=== PATIENT | male | born 1935 | race Caucasian/White ===

== ENCOUNTER 2024-01-08 04:51 | Inpatient (IN) | payer OTHER, SELFPAY ==
[2024-01-08] VITALS (20 sets, daily range): BP systolic 93–143; BP diastolic 50–90; PULSE 94; BMI 26.6; BMI 26.9
[2024-01-08] MEDS: SOLU-MEDROL PF 125 MG IV (01:19)
[2024-01-08 01:23] LABS: % Basophils 0.2 % (0-2); % Immature Granulocytes 0.4 % (0-0.5); % Lymphocytes 13.1 % (20.5-51.1); % Monocytes 8.5 % (1.7-9.3); % Neutrophils 77.8 % (42.2-75.2); Absolute Immature Granulocytes 0.1 10^3/uL (0-0.05); Absolute Lymphocytes 1.6 10^3/uL (1.2-3.4); Absolute Neutrophils 9.4 10^3/uL (1.4-6.5); Hematocrit 38.3 % (39.0-52.0); Hemoglobin 12.9 g/dL (13.0-18.0); Mean Corp Hgb Conc. 33.7 g/dL (33.0-37.0); Mean Corpuscular Hgb 29.7 pg (27.0-31.0); Mean Corpuscular Volume 88.2 fL (80.0-94.0); Mean Platelet Volume 10.9 fL (7.4-10.4); Nucleated Red Blood Cells % 0 % (-); Platelet Count 156 10^3/uL (130-400); Red Blood Cell Count 4.34 10^6/uL (4.70-6.10); Red Cell Dist. Width 15.6 % (11.5-14.5)
[2024-01-08 01:37] LABS: ALT (SGPT) 48 U/L (0-50); AST (SGOT) 54 U/L (17-59); Albumin 4.2 g/dl (3.5-5.0); Alkaline Phosphatase 73 U/L (38-126); Blood Urea Nitrogen 26 mg/dl (9-20); Carbon Dioxide 23 mmol/L (22-30); Chloride 101 mmol/L (98-107); Estimated Creatinine Clearance 26 ml/min; Glucose 170 mg/dl (70-99); Potassium 4.9 mmol/L (3.5-5.1); Sodium 134 mmol/L (135-145); Total Bilirubin 0.6 mg/dl (0.2-1.3); Total Protein 6.7 g/dl (6.3-8.2)
[2024-01-08 01:40] LABS: PT 13.2 Sec (11.4-14.6)
[2024-01-08 01:43] LABS: COVID-19 Antigen Negative (Negative)
[2024-01-08 01:50] LABS: NT-proBNP 13700 pg/ml; Troponin I 0.326 ng/ml
--- NOTE | 2024-01-08 02:19 | ED.GENMED ---
History of Present Illness
General
Chief Complaint: Breathing Problem
Source: patient, records and ambulance crew
Exam Limitations: none
Time Seen by Provider: 01/08/24 01:06
Nursing documentation reviewed up to this point in time: agreed with
Travel History
Have you had any contact with someone who has COVID-19?: No
Do you have any symptoms of coronavirus? Fever > 100 degrees, chills, cough, shortness of breath, sore throat, loss of taste or smell, muscle aches, or headache?: Yes
Symptoms:: sob
History of Present Illness
History of Present Illness:
88-year-old male with a past medical history of hyperlipidemia, hypothyroidism, asthma, CAD who presents to the emergency department via EMS from home for evaluation of breathing difficulties. Per EMS they received a call for a lift assist after
patient was having trouble getting out of bed. On arrival he was in mild respiratory distress they noted wheezing and treated with a DuoNeb transported to the hospital. Patient says that he has been feeling unwell all day�has had cough and mucus
and congestion. Tonight having worsening shortness of breath and weakness. He denies any chest pain. He has not noticed any swelling in his legs. He denies any nausea or vomiting. No abdominal pain. Denies other complaints.
Past History
Past History
ED Past Medical History: CAD, Cancer (Prostate cancer), Hypercholesterolemia, [place], Hypothyroidism and Other (Chronic back pain)
ED Past Surgical History: Appendectomy, Cardiac (Cardiac stenting) and Orthopedic (Multiple back surgeries, nerve stimulator, knee replacements)
Social History
Tobacco: Non-smoker
Alcohol: None
Drug: None
Personal:
Living: with family
Employment: Retired
Family History
Family History: Hypertension
Review of Systems
Review of Systems
All Other Systems: ROS reviewed and negative except as documented in HPI and ROS
Constitutional: Reports fatigue; Denies fever or chills
EENT: Reports other (Nasal congestion); Denies sore throat
Respiratory: Reports cough and trouble breathing
Cardiac: Denies chest pain or palpitations
ABD/GI: Denies abdominal pain, nausea or vomiting
: Denies flank pain
Musculoskeletal: Denies edema, neck pain or back pain
Neurological: Denies headache, weakness or numbness
Phy Exam
Physical Exam
Physical Exam:
General: Awake, alert, mild respiratory distress
Head: Normocephalic, atraumatic
Eyes: Conjunctiva normal
Throat: Airway intact, dry mucous membranes
Neck: Trachea midline, supple without meningismus
Lungs: Patient arrives tachypneic, hypoxic, speaking in 2-3 word sentences with some slight increased work of breathing; he has bilateral scattered expiratory wheezing breath sounds diminished at the lung bases right more than left, frequent coughing
Heart: Tachycardia with regular rhythm, no murmurs, gallops, or rubs
Abd: Soft, non distended, nontender
Neuro: Cranial nerves grossly intact, speech fluid
Skin: no rash
Extremities: No edema in extremities, equal pulses in all extremities
Scores
Heart Failure Risk
Heart Failure Risk Score: Not Applicable
Heart Score for Chest Pain Patients
STEMI patient?: Not applicable
Withdrawal Assessment of Alcohol
Withdrawal Assessment Completed?: Not applicable
Course
Orders/Labs/Results
Orders:
Orders
01/08/24 01:05
Electrocardiogram (*1) Urgent
Reason for Study: Other
Other Reason for Exam: Respiratory Distress
Cardiac Monitoring- Treatment ONCE
EKG- Treatment ONCE
IV Insert/Care/Rem.- Treatment PRN
CR Chest Portable - 1 View Urgent
Comment:
Reason For Exam: respiratory distress
Reason Study Needs to be Portable: Patient Unstable
O2 Therapy [RESP] Urgent
Titrate/Wean O2 to maintain O2 sat greater than (%): 93
Special Instructions: TO MAINTAIN CONTINUOUS O2 SATS >/= 93%
Pulse Ox/cont/shift [RESP] Urgent
Quantity: 1
Special Instructions: continuous pulse ox
01/08/24 01:14
MethylPREDNISolone PF [Solu-Medrol Pf] 125 mg IV NOW STA
01/08/24 01:15
COVID-19 Antigen Urgent
Source: Nasal Swab
Complete Blood Count/With Diff Urgent
Comprehensive Metabolic Panel Urgent
NT-proBNP Urgent
Prothrombin Time Urgent
Troponin I Urgent
Influenza A+B Rapid Molecular Urgent
JOSE MIGUEL Source: Nasal Swab
Specimen Description:
01/08/24 02:08
Venous Blood Gas Urgent
%Oxygen/Room Air: 88
01/08/24 02:09
Acetaminophen [Tylenol] 1,000 mg PO NOW STA
01/08/24 02:16
Lactate Level [Lactic Acid] Urgent
01/08/24 02:17
Procalcitonin Urgent
PCT Algorithmm Indication: Respiratory
Piperacillin/Tazo 3.375 Gram [Zosyn] 3.375 gram in 50 ml IV NOW
Vancomycin [Vancocin] 1,500 mg 0.9% Sodium Chloride [Nss] 20 ml 0.9% Sodium Chloride 250 ml [Nss] 250 ml IV NOW
01/08/24 02:19
NSS 250mL Bolus over 1 hr 0.9% Sodium Chloride 250 ml [Nss] 250 ml IV BOLUS
01/08/24 02:30
Blood Culture Q30M
JOSE MIGUEL Source: Blood/Venous
Specimen Description:
01/08/24 03:00
Blood Culture Q30M
JOSE MIGUEL Source: Blood/Venous
Specimen Description:
Abnormal Lab Results
01/08/24
01:15
WBC 12.0 H 10^3/uL
(4.8-10.8)
RBC 4.34 L 10^6/uL
(4.70-6.10)
Hgb 12.9 L g/dL
(13.0-18.0)
Hct 38.3 L %
(39.0-52.0)
RDW 15.6 H %
(11.5-14.5)
MPV 10.9 H fL
(7.4-10.4)
Abs Immat Gran (auto) 0.1 H 10^3/uL
(0-0.05)
Absolute Neuts (auto) 9.4 H 10^3/uL
(1.4-6.5)
Absolute Monos (auto) 1.0 H 10^3/uL
(0.1-0.6)
Neutrophils % 77.8 H %
(42.2-75.2)
Lymphocytes % 13.1 L %
(20.5-51.1)
Sodium 134 L mmol/L
(135-145)
BUN 26 H mg/dl
(9-20)
Creatinine 1.5 H mg/dL
(0.7-1.3)
Glucose 170 H mg/dl
(70-99)
Troponin I 0.326 H* ng/ml
01/08/24 01:15
01/08/24 01:15
Vital Signs
Initial and Last Documented VS:
Initial Vital Signs
Pulse Resp
125 28
01/08/24 01:06 01/08/24 01:06
Last Documented Vital Signs
Temp Pulse Resp BP Pulse Ox
38.6 C H 119 22 143/71 94
01/08/24 01:27 01/08/24 01:45 01/08/24 01:45 01/08/24 01:07 01/08/24 01:45
MDM/Problems Addressed
Differential Diagnosis Includes:
Asthma, bronchitis, pneumonia, CHF, pulmonary embolism
MDM/Problems Addressed:
88-year-old male presents in mild respiratory distress�has had congestion and cough all day increasing shortness of breath tonight. Vital signs significant for tachycardia, tachypnea, fever, hypoxia. Blood pressure normal. Physical exam as above.
Patient was placed on oxygen via nasal cannula, was given a DuoNeb and IV Solu-Medrol given his wheezing. Large-bore IV placed labs sent off including CBC and CMP, VBG, troponin, BNP. Will swab for COVID and flu. Will call for stat chest x-ray
and obtain an EKG. Monitor very closely and reassess after the above.
After DuoNeb and steroids patient's tachypnea and work of breathing improved now able to speak in full sentences. Still some slight wheezing and frequent coughing. Initial labs reviewed: CBC does show leukocytosis to 12, CMP shows MARIA ESTHER with a
creatinine of 1.5 from a baseline of less than 1. Troponin and BNP elevated likely some background CHF although patient does not appear floridly volume overloaded; with MARIA ESTHER, dry mucous membranes on exam and continued tachycardia will provide some
gentle fluids. COVID and flu swabs are negative. Chest x-ray reviewed by me shows elevated right hemidiaphragm adjacent atelectasis versus pneumonia, also likely left lower lobe opacity (retrocardiac). Concern for pneumonia, sepsis�will cover
with antibiotics. Will admit for continued management. Discussed with hospitalist.
Chronic conditions affecting care:
Asthma
*Radiology
Radiology exam reviewed: preliminary read by ED provider
*Pulse Oximetry
Patient hypoxic: yes
*EKG
Interpreted by ED Provider?: Yes
Comparison EKG: changes noted (Tachycardic)
Heart Rate: 125
Rate: tachycardiac
Rhythm: sinus and sinus tachycardia
Beulah: normal axis
Interval: normal interval
QRS Pattern: right bundle branch block
Ischemia: non-specific ST changes
*Critical Care Note
Total Time (30-74mins, 75-104mins- exclusive of procedures): 32
comment:
Critical care statement: A total of 32 minutes of critical care time was provided for this patient. This includes management of unstable vital signs, evaluation of the patient at bedside, frequent reassessment, discussion with
consultants/hospitalist, and review of pertinent medical records. This time was separate from time utilized to perform any aforementioned documented procedures.
Data Reviewed
Review of Other/Old Records Reveals: Labs and Records
Source: patient, records and ambulance crew
Patient Management
Discussion with other providers: Hospitalist (Discussed with hospitalist)
Escalation/DeEscalation of care consider admission/obs:
Admission indicated
ED Attending Note
-
Portions of this chart may have been created with voice recognition software.� Occasional wrong word or��sound alike� substitutions may have occurred due to the inherent limitations of voice recognition software.
Discharge Plan
Departure
Patient Disposition: Admit
Date of Disposition: 01/08/24
Time of Disposition: 02:30
Admit to doctor: Chris
Presentation/result/management discussed w/ accepting MD/DO: Hospitalist
Discharge Problem:
Sepsis, Acute hypoxemic respiratory failure, Pneumonia
Prescriptions:
No Action
denosumab [Prolia] 60 MG/ML syringe
60 mg IV Q6M
nitroglycerin 0.4 MG tablet, sublingual
0.4 mg sublingual [id number] PRN (Reason: chest pain) Qty: 1 0RF
acetaminophen 325 MG tablet
650 mg PO Q4HPRN PRN (Reason: mild pain/MELCHOR/temp> 101F) 0RF
Rx Instructions:
Two tabs (650mg) by mouth every 4 hours as needed for mild pain or fever.
atorvastatin 80 MG tablet
80 mg PO HS Qty: 0 0RF
Rx Instructions:
One tab by mouth at bedtime daily.
albuterol sulfate 2.5 MG/3 ML solution for nebulization
2.5 mg inhalation R Q4HPRN PRN (Reason: sob/wheezing) Qty: 0 0RF
Rx Instructions:
One vial inhaled via nebulizer every 4 hours as needed for shortness of breath.
clopidogrel 75 MG tablet
75 mg PO DAILY Qty: 30 5RF
Rx Instructions:
One tab by mouth once daily.
aspirin 81 MG tablet,delayed release (DR/EC)
81 mg PO HS Qty: 0 0RF
Rx Instructions:
One tab by mouth once daily.
famotidine 20 MG tablet
20 mg PO HS Qty: 0 0RF
Rx Instructions:
One tab by mouth at bedtime daily.
levothyroxine 50 MCG tablet
50 mcg PO DAILY Qty: 0 0RF
Rx Instructions:
One tab by mouth once daily on an empty stomach.
hydrocodone-acetaminophen 1 TABLET tablet
1 tab PO Q4HPRN PRN (Reason: moderate to severe pain) Qty: 0 0RF
Patient Comments:
08/02/2020: Last filled 07/20/20, 60 tabs [facility] [address] [facility] #[id number]
Rx Instructions:
One tab by mouth every 4 hours as needed for pain.
pantoprazole 40 MG tablet,delayed release (DR/EC)
40 mg PO BID Qty: 30 0RF
Rx Instructions:
One tab by mouth twice daily with breakfast and dinner.
metoprolol succinate 25 MG tablet extended release 24 hr
25 mg PO DAILY Qty: 0 0RF
Rx Instructions:
One tab by mouth once daily.
calcium citrate-vitamin D3 1 EACH tablet
2 tab PO BID Qty: 0 0RF
Rx Instructions:
Two tabs by mouth twice daily.
mirabegron [Myrbetriq] 50 MG tablet extended release 24 hr
50 mg PO DAILY Qty: 0 0RF
Rx Instructions:
One tab by mouth once daily.
vit C,N-Yc-tgnnt-lutein-zeaxan [PreserVision AREDS-2] 1 EACH capsule
1 cap PO BID Qty: 0 0RF
Rx Instructions:
One capsule by mouth twice daily.
Referrals:
Robert Humphrey MD [Family Provider] -
Interventions
Interventions:
*Risk Screen - Suicide Last Done: 01/08/24 01:06
*General Assessment Last Done: 01/08/24 01:06
*Neglect/Abuse Screening Last Done: 01/08/24 01:06
ED- Fall Risk Assessment Last Done: 01/08/24 01:28
*ED COVID-19 Vaccine History Last Done: 01/08/24 01:06
ED- Cardiac Assessment Last Done: 01/08/24 01:28
ED- Pulmonary Assessment Last Done: 01/08/24 01:28
Discharge Date and Time
Print Language: DUTCH
[2024-01-08] MEDS: ZOSYN 50 IV (02:39)
[2024-01-08] MEDS: TYLENOL 1000 MG PO (02:39)
[2024-01-08] MEDS: NSS 250 IV (02:39)
[2024-01-08 02:40] LABS: Venous Blood Gas B.E. -1.7 mmol/L (-4 to +4); Venous Blood Gas O2 Sat % 64.3 %; Venous Blood Gas pCO2 38 mmHg (35-48); Venous Blood Gas pH 7.39 (7.32-7.43); Venous Blood Gas pO2 38 mmHg (30-50)
[2024-01-08 02:42] LABS: Venous Blood Gas O2 Therapy 88
[2024-01-08 02:54] LABS: Lactic Acid 2.3 mmol/L (0.7-2.0)
[2024-01-08 03:24] LABS: Procalcitonin 2.06 ng/ml (0.0-0.25)
[2024-01-08] MEDS: VANCOCIN 300 MG IV (03:40)
[2024-01-08] MEDS: VANCOCIN 300 ML IV (03:40)
--- NOTE | 2024-01-08 04:15 | HPS.HSE ---
Family Physician
-
Family Physician: Robert Humphrey
Chief Complaint
-
SOB, Weakness
History of Present Illness
Patient is an 88y M with PMH significant for ASCVD, HTN and prostate cancer who presents to ED complaining of SOB and weakness. Patient called EMS this evening as he was having difficulty getting up out of bed. They arrived to find patient that
appeared SOB and had reported wheezing. They transported him to the ED for further evaluation. In the ED, patient initially complained of cough and congestion for the past 24 hours or so.
At the time of my examination, patient is awake but not alert and not answering questions / following commands consistently.
He is unable to provide additional history at this time.
Medical History
Past Medical History
Past Medical History: Reports Other
Additional Past Medical History:
ASCVD
Hypertension
Prostate Cancer
Chronic Back Pain / Sciatica
Hypothyroidism
GERD
Past Surgical History: Reports Other
Additional Past Surgical History:
PTCA with Stent
5 Back Surgeries
Implanted Spinal Stimulator
Epidural Pain Pump Implantation
Cataracts
Appendectomy
Prostatectomy
Right Hip ORIF
Bilateral TKA
Social History
Tobacco: Non-smoker
Alcohol: None
Drug: None
Family History
Family History: Not pertinent
Allergies / Home Medications
Allergies reflects when Allergies were last updated in [facility].
Home Medications with original date entered in [facility]
Allergy/Medication List:
Unable to obtain.
If medication reconciliation has not been performed, why?: Medication List N/A (Patient unable to confirm.)
Review of Systems
-
History Source: Patient (Limited ROS due to lethargy.)
Respiratory: Reports Trouble Breathing
: Reports Other (leg pain / hip pain.)
Physical Exam
Vital Signs
Vital Signs
Temp Pulse Resp BP Pulse Ox
100.7 F H 110 23 124/64 94
01/08/24 03:51 01/08/24 02:45 01/08/24 02:45 01/08/24 02:00 01/08/24 02:45
Physical Exam
General: Other (88y M cool, clammy and diaphoretic. Awake but poorly responsive to questions / commands. Appears acutely ill.)
HEENT: Other (Dry MM. Neck supple. No JVD.)
Respiratory: Other (Decreased BS throughout R lung. Otherwise clear. No wheezing / rales.)
Cardiac: S1/S2 and Regular Rhythm; No Murmur
GI: Soft, Non Tender, Non Distended, Normal Bowel Sounds and Other (Subcutaneous pump in the R abdomen. No tenderness, fluctuance, redness.)
Musculoskeletal: No Clubbing, No Cyanosis and No Edema
Neuro: Awake and Nonfocal/grossly intact; No Alert or Oriented
Laboratory Results
-
01/08/24 01:15
01/08/24 01:15
Laboratory Results
PT 13.2 Sec (11.4-14.6) 01/08/24 01:15
INR 1.00 01/08/24 01:15
Lactic Acid 2.3 mmol/L (0.7-2.0) H 01/08/24 02:32
Total Bilirubin 0.6 mg/dl (0.2-1.3) 01/08/24 01:15
AST 54 U/L (17-59) 01/08/24 01:15
ALT 48 U/L (0-50) 01/08/24 01:15
Alkaline Phosphatase 73 U/L (38-126) 01/08/24 01:15
Troponin I 0.326 ng/ml H* 01/08/24 01:15
Impression/Plan
-
A/P: Patient is an 88y M with PMH significant for ASVCD, HTN and chronic pain who presents to ED for evaluation of weakness, cough and SOB.
Pneumonia
Acute Hypoxemic Respiratory Insufficiency secondary to the above
Acute TME secondary to the above
Sepsis secondary to the above
- Admit for further evaluation and treatment.
- Patient presents with fever, leukocytosis, tachycardia and CXR / clinical history suspicious for pneumonia.
- Evidence of life threatening organ dysfunction in the form of acute hypoxemia, MARIA ESTHER, elevated troponin and TME.
- IV abx empirically with Vanco / Zosyn - adjust as able based on culture data / clinical course.
- COVID / influenza negative in the ED.
- Supportive care including IVFs, antipyretics, nebs, O2, etc.
- Follow for clinical improvement.
- Follow for improvement in mental status, hypoxemia, etc.
MARIA ESTHER
- SCr = 1.5 compared to baseline of 0.8.
- Patient clinically appears hypovolemic and suspect primarily prerenal etiology.
- IVFs as noted above
- Follow for changes in labs / lytes.
Abnormal Troponin
- Initial troponin = 0.327.
- Patient with dyspnea but no chest pain.
- Fever, leukocytosis, elevated procal all support infectious etiology.
- ? ischemia secondary to acute illness / sepsis.
- Given history of CAD, stent, etc - will continue to trend troponin to peak and ask Cardiology to evaluate.
- Monitor for any chest pain, worsening dyspnea or other new symptoms.
Benign Hypertension
- Presently with lower BPs in the ED due to sepsis.
- Hold BP medications acutely.
- IVFs +/- pressor support to maintain adequate perfusion.
Chronic Back Pain
- Patient with implanted spinal stimulator as well as epidural pain pump.
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
- Device site(s) appear intact / stable.
Hypothyroidism
- Continue T4 supplementation.
- Update TFTs.
DVT Prophylaxis: Subcut heparin
Code Status: Full
[2024-01-08] MEDS: LR 1000 IV ×2 (05:24→16:56)
[2024-01-08 05:45] LABS: Hemoglobin 11.9 g/dL (13.0-18.0); Mean Corp Hgb Conc. 32.2 g/dL (33.0-37.0); Mean Corpuscular Hgb 29.1 pg (27.0-31.0); Mean Corpuscular Volume 90.5 fL (80.0-94.0); Mean Platelet Volume 10.8 fL (7.4-10.4); Platelet Count 120 10^3/uL (130-400); Red Blood Cell Count 4.09 10^6/uL (4.70-6.10); Red Cell Dist. Width 15.6 % (11.5-14.5); White Blood Cell Count 13.6 10^3/uL (4.8-10.8)
[2024-01-08 06:10] LABS: Troponin I 0.656 ng/ml
[2024-01-08 06:24] LABS: ALT (SGPT) 45 U/L (0-50); AST (SGOT) 61 U/L (17-59); Albumin 3.7 g/dl (3.5-5.0); Alkaline Phosphatase 66 U/L (38-126); Blood Urea Nitrogen 31 mg/dl (9-20); Calcium 8.7 mg/dl (8.4-10.2); Carbon Dioxide 21 mmol/L (22-30); Chloride 99 mmol/L (98-107); Direct Bilirubin 0.3 mg/dl (0.0-0.4); Estimated Creatinine Clearance 23 ml/min; Glucose 172 mg/dl (70-99); Potassium 4.5 mmol/L (3.5-5.1); Sodium 134 mmol/L (135-145); Total Bilirubin 0.6 mg/dl (0.2-1.3)
[2024-01-08 06:52] LABS: TSH Reflex To Free T4 1.56 uIU/ml (0.47-4.68)
[2024-01-08 07:08] LABS: Lactic Acid 1.5 mmol/L (0.7-2.0)
--- NOTE | 2024-01-08 08:14 | W.PN.HOSP.TC ---
Today's Communication/Plan
-
Follow troponin
Echo
Add hydrocortisone
IV fluids
Bladder scan
Sputum cultures
Antibiotics adjusted
Assessment / Plan
Assessment / Plan
88-year-old male presented with shortness of breath and weakness
generally weak
Coughing
CVS: S1-S2 normal, systolic murmur at apex
Chest: rales, coarse BS bilaterally
Abdomen: Soft, NT / Bowel sounds present
Extremities: No edema, normal pulses
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
Distal 5/5
# Acute hypoxic respiratory insufficiency
Secondary to pneumonia
TME secondary to pneumonia
Sepsis secondary to pneumonia
Started on vancomycin and Zosyn changed To vancomycin and cefepime and Doxy
speech evaluation
Sputum Cx
COVID influenza negative
Oxygen support, supportive care
Mucolytic's
Wean oxygen as tolerated
Acapella
# Mild hypotension-likely related to withdrawal insufficiency because of chronic steroids
Use hydrocortisone and hold off on prednisone
# Acute kidney injury-creatinine 1.5 on admission baseline 0.8
Likely hypovolemic secondary to infection
IV fluids
Check bladder scan
# Elevated troponin
History of CAD, stenting of RCA 2014
H/O Mod-severe LVH
No chest pain trend troponin
Cardiology to evaluate
Continue aspirin, Plavix, statin
Hold metoprolol and Imdur because of blood pressure being on the low side
Echo 08/13/2023-normal LV size and function. Moderate concentric LVH. Ejection fraction 60 to 65%. Stage II diastolic dysfunction. Mild to moderate MR. Aortic sclerosis. Mild TR. Pulmonary artery pressure 51 mmHg
#Prolonged QTC- Avoid meds which can prolong
Check Mag
#Chronic RBBB
# Mild thrombocytopenia-follow
#Hypertension
Blood pressure on the low side therefore hold
Normally takes metoprolol as outpatient
# Hyperlipidemia-continue statin
# Chronic back pain patient has a spinal stimulator and epidural analgesic pump
Arthritis/DJD/osteoporosis
Chronic opiate dependence for pain control
Spinal stimulator was adjusted 3 weeks ago. Analgesic pump was refilled 2 months ago
On chronic prednisone for arthritis pain he has been on that since September
In November it was increased to 15 mg from 10 mg
# Hypothyroidism-continue Synthroid
# History of peptic ulcer disease-On PPI, Pepcid
# H/O Prostate CA, prostatectomy
# Allergic Asthma-PRN Nebs as OP
# Chronic ambulatory dysfunction
Patient ambulates with a cane. Refuses to use a walker per .
# DVT prophylaxis on subcutaneous heparin
# Full code-CODE STATUS discussed he wants to be full code
Discussed with patient's at bedside
Discussed with patient's son at bedside
Time spent 51 min
Anticipated Discharge: > 48 hours
Subjective/Interval History
-
Date of Service: January 08, 2024
Objective Data
-
Labs:
Laboratory Results
01/08/24 01/08/24
01:15 05:23
WBC 12.0 H 13.6 H
Hgb 12.9 L 11.9 L
Hct 38.3 L 37.0 L
Plt Count 156 120 L D
PT 13.2
INR 1.00
Sodium 134 L 134 L
Potassium 4.9 4.5
Chloride 101 99
Carbon Dioxide 23 21 L
BUN 26 H 31 H
Creatinine 1.5 H 1.7 H
Glucose 170 H 172 H
Calcium 9.0 8.7
Total Bilirubin 0.6 0.6
AST 54 61 H
ALT 48 45
Alkaline Phosphatase 73 66
Vital Signs:
Vital Signs
Temp Pulse Resp BP Pulse Ox
98.1 F 79 18 93/74 99
01/08/24 08:00 01/08/24 08:00 01/08/24 08:00 01/08/24 08:00 01/08/24 08:00
[2024-01-08] MEDS: PLAVIX 75 MG PO (08:15)
[2024-01-08] MEDS: HEPARIN 5000 UNITS SC ×2 (08:16→19:48)
[2024-01-08] MEDS: SYNTHROID 50 MCG PO (08:16)
[2024-01-08] MEDS: NSS (PRESERVATIVE FREE) 10 ML IV (08:16)
[2024-01-08] MEDS: PROTONIX IV 40 MG IV (08:16)
[2024-01-08] MEDS: MUCINEX 600 MG PO ×2 (09:22→19:48)
[2024-01-08] MEDS: DELTASONE 15 MG PO (09:23)
[2024-01-08] MEDS: STERILE WATER FOR INJECTION 10 ML IV ×2 (09:24→17:02)
[2024-01-08] MEDS: MAXIPIME 1000 MG IV ×2 (09:24→17:01)
--- NOTE | 2024-01-08 09:27 | PHA.VAN.IN ---
Assessment
- Assessment
Renal Function: Unknown baseline (likely elevated from baseline but no recent data - SCR 1.7 vs ~0.8 in 2020)
Concomitant Antimicrobials: cefepime, doxycycline
Plan
- Plan
Initial / Loading Dose: 1500mg - 01/07 03:40
Maintenance Regimen: dosing by level
Monitoring: random 01/08 0600
MRSA Screen: Ordered per protocol
Pharmacokinetics Vancomycin I
- -
Patient Age: 88
Patient Sex: Male
Vancomycin Day #: 1
Indication: Pulmonary/Respiratory
Requesting Provider: Dr. Perez
Pertinent Antimicrobial Allergies:
NKDA
Height / Weight:
Height 5 ft 2 in
Actual Weight 66 kg
- Vital Signs / Lab Results
Temp Pulse Resp BP Pulse Ox
98.1 F 79 18 93/74 99
01/08/24 08:00 01/08/24 08:00 01/08/24 08:00 01/08/24 08:00 01/08/24 08:00
Lab Results - Hematology
01/08/24 01/08/24
01:15 05:23
WBC 12.0 H 13.6 H
Lab Results - Chemistry
01/08/24 01/08/24
01:15 05:23
BUN 26 H 31 H
Creatinine 1.5 H 1.7 H
Estimated Creat Clear 26 23
Albumin 4.2 3.7
01/08/24 01/08/24
02:32 06:43
Lactic Acid 2.3 H 1.5
Microbiology Results
01/08/24 01:15 Influenza Types A & B (FE) - Final
Nasal Swab Negative for Influenza A & B, NAAT
Negative results must be combined with clinical observations
and patient history.
Nucleic Acid Amplification test (NAAT)performed on the
[employer] platform.
[2024-01-08] MEDS: VIBRAMYCIN 260 MG IV ×2 (10:07→21:32)
[2024-01-08 10:08] LABS: Urine Albumin Trace (Neg - Trace); Urine Bilirubin Negative (Negative); Urine Character Clear (Clear); Urine Color Yellow; Urine Glucose Negative (Negative); Urine Ketone 2+ (Negative); Urine Leukocyte Negative (Negative); Urine Nitrite Negative (Negative); Urine Occult Blood 3+ (Negative); Urine Specific Gravity 1.025 (<1.030); Urine Urobilinogen Negative (Neg - 1+)
--- NOTE | 2024-01-08 10:33 | CON.CAR ---
Addendum entered and electronically signed by Daneil Sams MD 01/08/24 13:14:
I saw and examined the patient.
The Wash Helper's note was reviewed and I agree with the note.
Comment:
GEN: No distress, awake,
HEENT: supple, anicteric, mmm
LUNGS: scatt rhonchi
CV: Reg, S1/S2, 1/6 syst LSB, no gallop
ABD: soft, BS+, NT/ND
EXT: No edema
NEURO: Gross non-focal
SKIN: No rash
Plan:
88-year-old male with past medical history of coronary artery disease, hypertension, hyperlipidemia, right bundle branch block and hypothyroidism presents with cough, fever, hypotension and shortness of breath. Flu and COVID testing was negative.
He has an elevated white blood cell count with an elevated procalcitonin. Cardiology asked to see him regarding abnormal troponin at 0.6. He denies any chest pains or current shortness of breath.
Clinically it sounds like he has pneumonia/bronchitis. Agree with antibiotics. Of note his proBNP is elevated at 13,000. Would avoid overhydration for him. He may need diuresis over the next 24 hours.
His EKG is sinus rhythm with a known right bundle branch block. Continue to trend troponins. I suspect this is a nonischemic myocardial injury.
He does have known coronary artery disease. I will continue conservative therapy for now. He should continue the aspirin, Plavix, and atorvastatin. Okay to hold the Imdur for now.
If clinically he is not improving with antibiotics could consider CT scan. Creatinine now up to 1.7.
Check echocardiogram to reevaluate LVEF, valves and PA pressures.
Original Note:
Consultation
Consultation Request
Date/Time Consultation Requested: 01/08/2024
Date/Time Consultation Performed: 01/08/2024
Requesting Provider: Dr. Perez
Performing Provider: Dr. Alejandra
Reason for Consultation: Elevated troponin
Medical History
-
History of Present Illness:
HPI: Geovany is an 88 year old male with PMH of CAD w/ prior RCA PCI, HTN, HLD, chronic back pain, RBBB, prostate cancer, and hypothyroidism. He presented to [facility] due to SOB, weakness, and cough. He had reportedly been feeling unwell for a few days,
but yesterday evening, he was unable to get out of bed due to weakness, and EMS was called. In ER, he was found to be hypoxic and was placed on 4L NC. He was febrile with temp of 101.5 and also was hypotensive. Labwork revealed leukocytosis with
elevated procalcitonin. Flu and Covid negative. He was admitted with sepsis and started on IVFs and IV antibiotics. Cardiology consulted due to elevated troponin which trended upwards to 0.656. He reports no chest pain or SOB at this time.
PMH:
CAD
h/o RCA PCI 07/23/2016
residual 80% stenosis of OM2 noted w/ 50% ostial LM stenosis 07/23/2016
HTN
HLD
Chronic dyspnea
Chronic back pain w/ epidural pain pump and spinal stimulator
RBBB
Prostate cancer
Hypothyroidism
Past Medical History
Past Medical History: Other (In HPI)
Past Surgical History: Appendectomy, Cardiac (RCA PCI 2015) and Other (cataract extraction, spinal stimulator, b/l TKA, carpal tunnel release)
Social History
Tobacco: Non-Smoker
Alcohol: None
Drug: None
Personal:
Living: With Family
Employment: Retired
Family History
Family History: Cancer
Allergies / Home Medications
Allergy/AdvReac Type Severity Reaction Status Date / Time
No Known Allergies Allergy Verified 01/08/24 01:06
�Medication �Instructions �Recorded �Confirmed �Type
denosumab 60 mg/mL subcutaneous 60 mg IV [id number] 07/23/16 01/08/24 History
syringe (Prolia)
nitroglycerin 0.4 mg sublingual 0.4 mg sublingual [id number] PRN 07/23/16 01/08/24 Rx
tablet chest pain #1 tab
albuterol sulfate 2.5 mg/3 mL 2.5 mg (3 mL) inhalation R Q4HPRN 08/05/20 01/08/24 Rx
(0.083 %) solution for nebulization PRN sob/wheezing ##0
aspirin 81 mg tablet,delayed 81 mg PO HS ##0 08/05/20 01/08/24 Rx
release
atorvastatin 80 mg tablet 80 mg PO HS ##0 08/05/20 01/08/24 Rx
clopidogrel 75 mg tablet 75 mg PO DAILY #30 tabs 08/05/20 01/08/24 Rx
famotidine 20 mg tablet 20 mg PO HS ##0 08/05/20 01/08/24 Rx
metoprolol succinate 25 mg 25 mg PO DAILY ##0 08/05/20 01/08/24 Rx
tablet,extended release 24 hr
mirabegron 50 mg tablet,extended 50 mg PO DAILY ##0 08/05/20 01/08/24 Rx
release 24 hr (Myrbetriq)
vit C 250 mg-vit E 90 mg-zinc 40 1 cap PO BID ##0 08/05/20 01/08/24 Rx
mg-copper 1 [id number]
capsule (PreserVision AREDS-2)
acetaminophen 325 mg tablet 650 mg PO Q8HPRN PRN mild 01/08/24 01/08/24 History
pain/MELCHOR/temp> 101F
guaifenesin 600 mg tablet, 600 mg PO HS 01/08/24 01/08/24 History
extended release 12 hr (Mucinex)
hydrocodone 5 mg-acetaminophen 325 1 tab PO BID 01/08/24 01/08/24 History
mg tablet
isosorbide mononitrate 30 mg 30 mg PO DAILY 01/08/24 01/08/24 History
tablet,extended release 24 hr
levothyroxine 50 mcg tablet 50 mcg PO DAILY@1600 01/08/24 01/08/24 History
(Synthroid)
pantoprazole 40 mg tablet,delayed 40 mg PO DAILY 01/08/24 01/08/24 History
release
prednisone 10 mg tablet 15 mg PO DAILY 01/08/24 01/08/24 History
Review of Systems
-
History Source: Patient
All other systems: Negative unless noted
Physical Exam
Vital Signs
Temp Pulse Resp BP Pulse Ox
98.1 F 79 18 93/74 99
01/08/24 08:00 01/08/24 08:00 01/08/24 08:00 01/08/24 08:00 01/08/24 08:00
Lab Results
01/08/24 05:23
01/08/24 05:23
Troponin I 0.656 ng/ml H* D 01/08/24 05:23
Qiy-S-Hsgpgddatms Pept 76863 pg/ml 01/08/24 01:15
Physical Exam
General: Well Developed and Well Nourished
HEENT: Normocephalic, Anicteric and Moist Mucous Membranes
Respiratory: Rhonchi and Non Labored Respirations
Cardiac: S1/S2, Regular Rhythm and Murmur
Musculoskeletal: No Clubbing, No Cyanosis and No Edema
Skin: Warm and Dry
Neuro: AO x 3 and Nonfocal/Grossly Intact
Impression / Plan
-
PCP: Dr. Echols
Cardiology: Dr. Mercado
Impression:
Presented with cough, weakness
Acute hypoxic respiratory insufficiency
Sepsis due to PNA
Elevated troponin
MARIA ESTHER
CAD
h/o RCA PCI 07/23/2016
residual 80% stenosis of OM2 noted w/ 50% ostial LM stenosis 07/23/2016
HTN
HLD
Chronic dyspnea
Chronic back pain w/ epidural pain pump and spinal stimulator
RBBB
Prostate cancer
Hypothyroidism
Lexiscan stress test 06/25/2023: Perfusion imaging reveals a small area of mildly decreased perfusion that is fixed in the basal inferior segment
Echo 08/13/2023: EF 60-65%, moderate cLVH, stage II diastolic dysfunction, dense posterior MAC w/ mild to moderate MR, aortic sclerosis without stenosis, mild TR, estimated PAP 51 mmHg
Echo 01/08/2024: Study pending
Plan:
-Presented with weakness, cough, and SOB. Admitted with sepsis due to PNA. Receiving IVFs and IV abx per primary service.
-Flu and covid negative. Blood cultures pending.
-Cardiology consulted due to elevated troponin, w/ peak 0.656, trending down thereafter. Declines any chest pain at this time. Does have h/o CAD with RCA stenting in 2016.
-Suspect nonischemic myocardial injury in the setting of sepsis and MARIA ESTHER.
-Prior echo noted preserved EF and mild to moderate MR. Repeat echo pending.
-EKG reviewed. SR with RBBB. QTc 501ms. Avoid QT prolonging medications.
-K and mag stable at 4.5 and 2.0 respectively. TSH wnl.
-Continue aspirin and plavix.
-As OP is on Toprol and Imdur, however both on hold due to sepsis and hypotension.
-Follow volume status closely with IV fluids. ProBNP 13,700. Not on diuretic as OP. Creat up to 1.7.
-On 4L NC. wean as able.
HPI: Geovany is an 88 year old male with PMH of CAD w/ prior RCA PCI, HTN, HLD, chronic back pain, RBBB, prostate cancer, and hypothyroidism. He presented to [facility] due to SOB, weakness, and cough. He had reportedly been feeling unwell for a few days,
but yesterday evening, he was unable to get out of bed due to weakness, and EMS was called. In ER, he was found to be hypoxic and was placed on 4L NC. He was febrile with temp of 101.5 and also was hypotensive. Labwork revealed leukocytosis with
elevated procalcitonin. Flu and Covid negative. He was admitted with sepsis and started on IVFs and IV antibiotics. Cardiology consulted due to elevated troponin which trended upwards to 0.656. He reports no chest pain or SOB at this time.
Data Reviewed
-
EKG: Tracing Personally Visualized and interpreted
Radiology: Report Reviewed by me
Labs: Labs Reviewed by me
Old Records: Reviewed
--- NOTE | 2024-01-08 10:34 | PTOTSP ---
ST Acute Care Evaluation
Pt presents with signs and symptoms (as well as reported symptoms) consistent with at least moderate oropharyngeal and esophageal dysphagia characterized by purposeful small bites and overmastication (per pt report), immediate and delayed coughing
with occasional regurgitation with both solids and liquids, as well as sternal discomfort with ingestion of solids and pills.
Recommendations:
- NPO x meds whole or crushed in puree (as able).
- ARHP - ice chips, sparingly, with supervision.
- Aspiration precautions: HOB fully upright as often as possible; oral care QID; encourage pt to expectorate secretions/excess mucous.
- Video fluoroscopic swallow study for further diagnostic information.
- TIMBER MANAGEMENT PROFESSOR will continue to follow closely.
[2024-01-08 10:39] LABS: Urine Bacteria Few (Negative); Urine Red Blood Cell 0-2 /HPF (0-2)
[2024-01-08 10:48] LABS: Urine Sodium 44 mmol/L (30-90)
[2024-01-08] MEDS: VENTOLIN NEBULES 2.5 MG INH ×3 (11:17→19:16)
[2024-01-08 11:59] LABS: Troponin I 0.629 ng/ml
[2024-01-08] MEDS: SOLU-CORTEF 50 MG IV (17:02)
--- NOTE | 2024-01-08 19:14 | PTCARENOTE ---
Admitted to 3349, admission completed bedside- IMU monitoring in place. O2 2L NC intact, coughing copious amt sputum into cup. Sputum specimen collected prior to arrival. LR @75ml/hr infusing. NPO status maintained and family updated on POC. No
void noted since earlier today- bladder scanned and straight cathed 450ml.
[2024-01-08] MEDS: PEPCID 20 MG PO (21:32)
[2024-01-08] MEDS: LIPITOR 80 MG PO (21:32)
[2024-01-08] MEDS: ASPIR LOW (ENTERIC COATED) 81 MG PO (21:32)
[2024-01-09] VITALS (14 sets, daily range): BP systolic 93–141; BP diastolic 52–102; PULSE 84–90; O2SAT 88–97; BMI 26.7
[2024-01-09] MEDS: SOLU-CORTEF 50 MG IV ×3 (01:08→16:18)
[2024-01-09] MEDS: MAXIPIME 1000 MG IV ×2 (01:08→08:50)
[2024-01-09] MEDS: STERILE WATER FOR INJECTION 10 ML IV ×2 (01:08→08:49)
--- NOTE | 2024-01-09 01:43 | PTCARENOTE ---
pt was able to get OOB x2 assistance to BSC to have large BM. pt very unsteady, tremulous. pt also very SOB/wheezing during stand and pivot to BSC. HR 120s during ambulation, oxygen dropped to 88% on 2L NC but pt recovered quickly after rest.
[2024-01-09] MEDS: LR 1000 IV (04:39)
[2024-01-09] MEDS: SYNTHROID 50 MCG PO (04:39)
--- NOTE | 2024-01-09 05:05 | PTCARENOTE ---
pt noted to have audible wheezes, especially on exertion. pt 94% 2L- no meds ordered for wheezes PRN. notified covering [employer]- told to continue to monitor. no new orders at this time.
[2024-01-09 05:12] LABS: Vancomycin Random 8.5 ug/ml
[2024-01-09] MEDS: VENTOLIN NEBULES 2.5 MG INH ×3 (07:47→20:32)
--- NOTE | 2024-01-09 07:57 | PHA.VAN.FU ---
Vancomycin Assessment / Plan
- Assessment
Renal Function: No New Labs Today
In the past 24 hrs, patient has been: Afebrile
Concomitant Antimicrobials: cefepime, doxycycline
- Assessment - Therapeutic Drug Monitoring
Random Level: 8.5 - drawn ~25H after 1500mg loading dose
- Dosing Plan
Dosing by Level: Re-dose today (Vanc 1000mg)
- Monitoring Plan
Random Level: 01/09 06
- Follow Up
Pharmacy will continue to follow.
Vancomycin Follow UP
- -
Patient Age: 88
Patient Sex: Male
Vancomycin Day #: 2
Indication: Pulmonary/Respiratory
Requesting Provider: Dr. Perez
Pertinent Antimicrobial Allergies:
NKDA
Height / Weight:
Height 5 ft 2 in
Actual Weight 66.2 kg
- Vital Signs / Lab Results
Temp Pulse Resp BP Pulse Ox
97.5 F 84 18 118/56 97
01/09/24 03:00 01/09/24 07:48 01/09/24 07:48 01/09/24 06:00 01/09/24 07:48
Lab Results - Hematology
01/08/24 01/08/24
01:15 05:23
WBC 12.0 H 13.6 H
Lab Results - Chemistry
01/08/24 01/08/24
01:15 05:23
BUN 26 H 31 H
Creatinine 1.5 H 1.7 H
Estimated Creat Clear 23
Albumin 4.2 3.7
01/08/24 01/08/24
02:32 06:43
Lactic Acid 2.3 H 1.5
Lab Results - Urine
01/08/24
09:35
Urine Nitrite (Reflex) Negative
Leukocyte Esterase Rfl Negative
Ur Squamous Epith Cells 3-5
Microbiology Results
01/08/24 19:38 Nasal Screen MRSA (PCR) - Final
Nose MRSA not detected - performed by PCR methodology.
01/08/24 02:32 Blood Culture - Preliminary
Blood/Venous No Growth in 24 hours- Final report to follow
01/08/24 02:32 Blood Culture - Preliminary
Blood/Venous No Growth in 24 hours- Final report to follow
01/08/24 09:35 Gram Stain - Preliminary
Sputum
01/08/24 01:15 Influenza Types A & B (FE) - Final
Nasal Swab Negative for Influenza A & B, NAAT
Negative results must be combined with clinical observations
and patient history.
Nucleic Acid Amplification test (NAAT)performed on the
[employer] platform.
Therapeutic Drug Monitoring
Random Vancomycin 8.5 ug/ml 01/09/24 04:41
[2024-01-09] MEDS: MUCINEX 600 MG PO ×2 (08:48→21:56)
[2024-01-09] MEDS: PLAVIX 75 MG PO (08:48)
[2024-01-09] MEDS: PROTONIX IV 40 MG IV (08:48)
[2024-01-09] MEDS: NSS (PRESERVATIVE FREE) 10 ML IV (08:49)
[2024-01-09] MEDS: HEPARIN 5000 UNITS SC ×2 (08:49→21:55)
[2024-01-09] MEDS: VANCOCIN 200 IV (10:07)
--- NOTE | 2024-01-09 10:32 | CM ---
Patient with Dx Acute hypoxic respiratory insufficiency secondary to pneumonia, TME, Sepsis. O2 2L. ST Eval - NPO. Receiving IV Abx, IVF. PT & OT Evals pending.
Met with patient, Karlee, son & dtr;
the patient resides with his in a 1 story house with 3 HEATHER.
He has been independent in ADLs and ambulation using his quad cane.
DME - quad cane, RW
No prior VN
Prior [facility]
PCP - [facility] Devries
Pharmacy - [address], [place]
CM continuing to follow for d/c needs.
Plan watch for home O2 needs.
Plan follow up after PT/OT Evals.
--- NOTE | 2024-01-09 10:42 | W.PN.CARDCBS ---
Addendum entered and electronically signed by Milind Reis MD 01/09/24 13:28:
patient seen and examined
agree with RALPH Gilmore's notes and assessment
agree with RALPH Gilmore's plan
still recovering from his PNA
exam:
R>L rhonchi
heent ncat
jvp 6
cor regular
abd soft nt nd
no ext edema
aao x3
non focal neurologically
Impression:
Presented with cough, weakness
Acute hypoxic respiratory insufficiency
Sepsis due to PNA
Elevated troponin
MARIA ESTHER
CAD
h/o RCA PCI 07/23/2016
residual 80% stenosis of OM2 noted w/ 50% ostial LM stenosis 07/23/2016HTN
HLD
Chronic dyspnea
Chronic back pain w/ epidural pain pump and spinal stimulator
RBBB
Prostate cancer
Hypothyroidism
Lexiscan stress test 06/25/2023: Perfusion imaging reveals a small area of mildly decreased perfusion that is fixed in the basal inferior segment
Echo 08/13/2023: EF 60-65%, moderate cLVH, stage II diastolic dysfunction, dense posterior MAC w/ mild to moderate MR, aortic sclerosis without stenosis, mild TR, estimated PAP 51 mmHg
Echo 01/08/2024: EF 55 to 60%, moderate concentric LVH, no significant valvular disease
Plan:
-Presented with weakness, cough, and SOB. Admitted with sepsis due to PNA. covid, flu negative. blood cultures negative thus far. abx per primary service.
-for VSE today
-wean supp O2 as able
-Cardiology consulted due to elevated troponin, peak 0.656, trending down thereafter. he does report some intermittent chest discomfort which he describes as a jolting/stabbing pain
-has h/o CAD with RCA stenting in 2015 with residual LM and OM2 disease as above
-EKG SR with RBBB, no acute ischemic changes noted
-echo with preserved EF, as above. results reviewed with patient and family at bedside 01/08.
-last stress test from 05/2023 as above
-managing as nonischemic myocardial injury. continue medical therapy at this time
-Continue aspirin, plavix, statin
-As OP is on Toprol and Imdur, however both presently on hold due to sepsis and hypotension. resume as able
-Follow volume status closely with IV fluids. ProBNP 13,700. Not on diuretic as OP. CXR without overt CHF. Cr was uptrending as of 01/07. ordered repeat BMP today
-will arrange OP cardiac follow up and at that time can consider for ischemic evaluation once recovered from PNA standpoint
-d/w nursing
Original Note:
Today's Communication / Plan
-
echo reviewed with family and patient 01/08
continue asa, plavix, statin
resume OP imdur, toprol as BP allows
continue treatment of PNA
follow volume status
Impression / Plan
-
PCP: Dr. Echols
Cardiology: Dr. Mercado
Impression:
Presented with cough, weakness
Acute hypoxic respiratory insufficiency
Sepsis due to PNA
Elevated troponin
MARIA ESTHER
CAD
h/o RCA PCI 07/23/2016
residual 80% stenosis of OM2 noted w/ 50% ostial LM stenosis 07/23/2016
HTN
HLD
Chronic dyspnea
Chronic back pain w/ epidural pain pump and spinal stimulator
RBBB
Prostate cancer
Hypothyroidism
Lexiscan stress test 06/25/2023: Perfusion imaging reveals a small area of mildly decreased perfusion that is fixed in the basal inferior segment
Echo 08/13/2023: EF 60-65%, moderate cLVH, stage II diastolic dysfunction, dense posterior MAC w/ mild to moderate MR, aortic sclerosis without stenosis, mild TR, estimated PAP 51 mmHg
Echo 01/08/2024: EF 55 to 60%, moderate concentric LVH, no significant valvular disease
Plan:
-Presented with weakness, cough, and SOB. Admitted with sepsis due to PNA. covid, flu negative. blood cultures negative thus far. abx per primary service.
-for VSE today
-wean supp O2 as able
-Cardiology consulted due to elevated troponin, peak 0.656, trending down thereafter. he does report some intermittent chest discomfort which he describes as a jolting/stabbing pain
-has h/o CAD with RCA stenting in 2016 with residual LM and OM2 disease as above
-EKG SR with RBBB, no acute ischemic changes noted
-echo with preserved EF, as above. results reviewed with patient and family at bedside 01/08.
-last stress test from 05/2023 as above
-managing as nonischemic myocardial injury. continue medical therapy at this time
-Continue aspirin, plavix, statin
-As OP is on Toprol and Imdur, however both presently on hold due to sepsis and hypotension. resume as able
-Follow volume status closely with IV fluids. ProBNP 13,700. Not on diuretic as OP. CXR without overt CHF. Cr was uptrending as of 01/07. ordered repeat BMP today
-will arrange OP cardiac follow up and at that time can consider for ischemic evaluation once recovered from PNA standpoint
-d/w nursing
HPI: Geovany is an 88 year old male with PMH of CAD w/ prior RCA PCI, HTN, HLD, chronic back pain, RBBB, prostate cancer, and hypothyroidism. He presented to [facility] due to SOB, weakness, and cough. He had reportedly been feeling unwell for a few days,
but yesterday evening, he was unable to get out of bed due to weakness, and EMS was called. In ER, he was found to be hypoxic and was placed on 4L NC. He was febrile with temp of 101.5 and also was hypotensive. Labwork revealed leukocytosis with
elevated procalcitonin. Flu and Covid negative. He was admitted with sepsis and started on IVFs and IV antibiotics. Cardiology consulted due to elevated troponin which trended upwards to 0.656. He reports no chest pain or SOB at this time.
Progress Note - Housekeeping Coordinator
Subjective
Date of Service: January 09, 2024
reports some lower chest/epigastric pain with coughing. continues with SOB
Objective
Labs:
01/08/24 05:23
01/08/24 05:23
Labs
Hgb 11.9 g/dL (13.0-18.0) L 01/08/24 05:23
Hct 37.0 % (39.0-52.0) L 01/08/24 05:23
Plt Count 120 10^3/uL (130-400) L D 01/08/24 05:23
PT 13.2 Sec (11.4-14.6) 01/08/24 01:15
INR 1.00 01/08/24 01:15
Sodium 134 mmol/L (135-145) L 01/08/24 05:23
Potassium 4.5 mmol/L (3.5-5.1) 01/08/24 05:23
BUN 31 mg/dl (9-20) H 01/08/24 05:23
Creatinine 1.7 mg/dL (0.7-1.3) H 01/08/24 05:23
Glucose 172 mg/dl (70-99) H 01/08/24 05:23
Troponins
01/08/24 01/08/24 01/08/24
01:15 05:23 11:27
Troponin I 0.326 H* 0.656 H* D 0.629 H*
01/08/24
17:00
Troponin I Cancelled
Vital Signs and I&O:
Vital Signs
Temp Pulse Resp BP Pulse Ox
97.5 F 84 18 118/56 97
01/09/24 07:23 01/09/24 07:48 01/09/24 07:48 01/09/24 06:00 01/09/24 07:48
Vital Signs
Temp Pulse Resp BP Pulse Ox
97.5 F 84 18 118/56 97
01/09/24 07:23 01/09/24 07:48 01/09/24 07:48 01/09/24 06:00 01/09/24 07:48
Intake & Output
01/07/24 01/08/24 01/09/24 01/10/24
07:59 07:59 07:59 07:59
Intake Total 560 / 560
Output Total 450 / 450
Balance 110 / 110
Physical Exam
Physical Exam
GEN: No distress, awake, alert, oriented x3. on supp O2. sitting in chair
HEENT: supple, anicteric, mmm, eomi
LUNGS: coarse BS B/L with component of bronchospasm as coughs with deep breaths
CV: Reg, S1/S2, no murmur
ABD: soft, BS+, NT/ND
EXT: No cyanosis, clubbing, edema
NEURO: Gross non-focal
SKIN: Warm, pink, dry. No rash
[2024-01-09] MEDS: VENTOLIN NEBULES INH (11:08)
[2024-01-09] MEDS: VIBRAMYCIN 260 MG IV (11:54)
[2024-01-09 14:11] LABS: Hematocrit 32.7 % (39.0-52.0); Hemoglobin 10.6 g/dL (13.0-18.0); Mean Corp Hgb Conc. 32.4 g/dL (33.0-37.0); Mean Corpuscular Hgb 29.3 pg (27.0-31.0); Mean Corpuscular Volume 90.3 fL (80.0-94.0); Mean Platelet Volume 11.1 fL (7.4-10.4); Platelet Count 130 10^3/uL (130-400); Red Blood Cell Count 3.62 10^6/uL (4.70-6.10); Red Cell Dist. Width 15.7 % (11.5-14.5); White Blood Cell Count 13.4 10^3/uL (4.8-10.8)
[2024-01-09 14:21] LABS: Blood Urea Nitrogen 33 mg/dl (9-20); Calcium 8.1 mg/dl (8.4-10.2); Carbon Dioxide 23 mmol/L (22-30); Chloride 105 mmol/L (98-107); Estimated Creatinine Clearance 33 ml/min; Glucose 221 mg/dl (70-99); Sodium 133 mmol/L (135-145); eGFR 58.17
--- NOTE | 2024-01-09 14:53 | PTOTSP ---
Video Swallow Study
Summary: Patient presents with WFL oral and WFL-mild pharyngeal stages of swallowing. There was no aspiration. Mild-moderate pharyngeal retention with solids reduced with a liquid wash. Please see patient care note for full details of
penetration and swallowing physiology.
Per chart review, patient c/o regurgitation and sternal discomfort with solids/pills at time of clinical bedside swallowing evaluation. On this test, CP bar noted as well as what appeared to be a 'tight' pharyngoesophageal segment. Consider GI
consult to further assess esophageal stage.
Recommend:
1. Regular, Thin Liquids
2. Medications as best tolerated
3. Strategies: double swallows and/or liquid washes to assist with pharyngeal clearance, remain upright for 30 minutes after PO intake as a reflux precaution
4. GI consult
5. Brief follow up at the acute care level for patient instruction in compensations. Therapy not warranted after D/C at this time.
--- NOTE | 2024-01-09 14:56 | CON.ID ---
Consultation
-
Date/Time Consultation Requested: 01/09/24 12:50
Date/Time Consultation Performed: 01/08/25 14:56
Requesting Provider: Dr Butt
Performing Provider: Dr Bucio
Reason for Consultation: sepsis
Chief Complaint / Past History
Chief Complaint
SOB, Weakness
History of Present Illness
Mr Laureano is an 88 year old male with history of prostate cancer, ASCD who presented here for weakness, cough, wheezing, cough and congestion x24 hours. He progressed to confusion - history limited by the condition of the patient on arrival; today
he is clear, reports occasinoally productive cough
Since arrival here he was initially febrile to 101.5, bp stable, sating 94% on 2L, wbc initially 12 now 13, hgb 10., plt 130, cr initially 1.5 now 1.2, baseline from 4 years ago may be as low as 0.8, lactci acid 1.5, [place] [id number], urine
6-10 wbc/hpf and few bacteria, covid ag negative, 01/07: new elevation of R hemidiaphragm, 01/07 sputum culture usual resp keila, blood cultures x2 no growth to date, flu negative, mrsa screen neg. He has been started on hydrocortisone. Echo: normal
EF. barium swallow: no significant aspiration if straw avoided,
Past History
Additional Past Medical History:
ASCVD
Hypertension
Prostate Cancer
Chronic Back Pain / Sciatica
Hypothyroidism
GERD
Additional Past Surgical History:
PTCA with Stent
5 Back Surgeries
Implanted Spinal Stimulator
Epidural Pain Pump Implantation
Cataracts
Appendectomy
Prostatectomy
Right Hip ORIF
Bilateral TKA
Allergy History:
No Known Allergies Allergy (Verified 01/08/24 01:06)
Medications Reviewed: Yes
Social History
Tobacco: Non-Smoker
Alcohol: None
Drug: None
Family History
Family History: Not Pertinent
Review of Systems
Review of Systems
General: Fever and Chills
All systems: All other systems were reviewed and were negative
Vital Signs
Temp Pulse Resp BP Pulse Ox
97.6 F 89 21 136/73 94
01/09/24 11:20 01/09/24 10:42 01/09/24 10:42 01/09/24 10:42 01/09/24 10:42
Physical Exam
Physical Exam
Constitutional: No Acute Distress
Cardiovascular: Regular Rate and S1/S2; Negative Murmur or Rub
Pulmonary: Clear and Symmetric; Negative Wheezes, Rales or Rhonchi
Gastrointestinal: Soft, Non Tender, Non Distended and Normal Bowel Sounds
Skin: Warm and Dry; Negative Rash or Jaundice
Lab / Diagnostic Study Results
01/09/24 13:54
01/09/24 13:54
Abs Immat Gran (auto) 0.1 10^3/uL (0-0.05) H 01/08/24 01:15
Absolute Neuts (auto) 9.4 10^3/uL (1.4-6.5) H 01/08/24 01:15
Absolute Lymphs (auto) 1.6 10^3/uL (1.2-3.4) 01/08/24 01:15
Absolute Monos (auto) 1.0 10^3/uL (0.1-0.6) H 01/08/24 01:15
Absolute Basos (auto) 0.0 10^3/uL (0-0.2) 01/08/24 01:15
Immature Gran % 0.4 % (0-0.5) 01/08/24 01:15
Neutrophils % 77.8 % (42.2-75.2) H 01/08/24 01:15
Lymphocytes % 13.1 % (20.5-51.1) L 01/08/24 01:15
Monocytes % 8.5 % (1.7-9.3) 01/08/24 01:15
Eosinophils % 0.0 % (0-6) 01/08/24 01:15
Basophils % 0.2 % (0-2) 01/08/24 01:15
PT 13.2 Sec (11.4-14.6) 01/08/24 01:15
INR 1.00 01/08/24 01:15
Lactic Acid 1.5 mmol/L (0.7-2.0) 01/08/24 06:43
Procalcitonin 2.06 ng/ml (0.0-0.25) H* 01/08/24 02:32
Ur Squamous Epith Cells 3-5 /LPF (Few) 01/08/24 09:35
Microbiology Results
Micro:
01/08/24 09:35 Respiratory Culture - Preliminary
Sputum Usual Respiratory Keila
Gram Stain - Preliminary
01/08/24 19:38 Nasal Screen MRSA (PCR) - Final
Nose MRSA not detected - performed by PCR methodology.
01/08/24 02:32 Blood Culture - Preliminary
Blood/Venous No Growth in 24 hours- Final report to follow
01/08/24 02:32 Blood Culture - Preliminary
Blood/Venous No Growth in 24 hours- Final report to follow
01/08/24 01:15 Influenza Types A & B (FE) - Final
Nasal Swab Negative for Influenza A & B, NAAT
Negative results must be combined with clinical observations
and patient history.
Nucleic Acid Amplification test (NAAT)performed on the
[employer] platform.
Assessment / Plan
Fever
Sepsis
Leukocytosis
MARIA ESTHER vs CKD
Pain pump and spinal stimulator
- blood cultures x2 in progress
- spuutm culture if able to produce; no significant aspiration on barium swallow
- no carlos a infiltrate on initial CXR - repeat in the AM
- covid and influenza antigens neg
- follow renal function
- will start ceftriaxone/doxycycline for now; stop vanc/cefepime - short course of therapy may be considered
- follow clinically
--- NOTE | 2024-01-09 16:55 | W.PN.HOSP.TC ---
Today's Communication/Plan
-
Continue Nebs
Steroids
Acapella
CT A/P
Assessment / Plan
Assessment / Plan
88-year-old male presented with shortness of breath and weakness
sitting in a chair
Coughing
CVS: S1-S2 normal, systolic murmur at apex
Chest: rales, coarse BS bilaterally, wheezes
Abdomen: Soft, has mild diffuse tenderness, no guarding, Bowel sounds present
Extremities: No edema, normal pulses
ADVICE NURSE: proximal muscles weak
Distal 5/5
# Acute hypoxic respiratory insufficiency
Secondary to pneumonia- CXR clear -repeat
TME secondary to infection
Sepsis secondary to lung infection
Ceftriaxone and Doxy
D/C Vanco
speech evaluation appreciated
Sputum Cx
COVID influenza negative
Oxygen support, supportive care
Mucolytic's
Wean oxygen as tolerated
Acapella
with abdominal pain will get a CT also
# Mild hypotension-likely related to withdrawal insufficiency because of chronic steroids
Use hydrocortisone and hold off on prednisone
# Acute kidney injury-creatinine 1.5 on admission baseline 0.8
Likely hypovolemic secondary to infection
IV fluids
Bladder scan OK
# Elevated troponin
History of CAD, stenting of RCA 2014
H/O Mod-severe LVH
No chest pain trend troponin
Cardiology to evaluate
Continue aspirin, Plavix, statin
Hold metoprolol and Imdur because of blood pressure being on the low side
Echo 08/13/2023-normal LV size and function. Moderate concentric LVH. Ejection fraction 60 to 65%. Stage II diastolic dysfunction. Mild to moderate MR. Aortic sclerosis. Mild TR. Pulmonary artery pressure 51 mmHg
#Prolonged QTC- Avoid meds which can prolong
Check Mag
#Chronic RBBB
# Mild thrombocytopenia resolved
#Hypertension
Blood pressure on the low side therefore hold
Restart metoprolol
# Hyperlipidemia-continue statin
# Chronic back pain patient has a spinal stimulator and epidural analgesic pump
Arthritis/DJD/osteoporosis
Chronic opiate dependence for pain control
Spinal stimulator was adjusted 3 weeks ago. Analgesic pump was refilled 2 months ago
On chronic prednisone for arthritis pain he has been on that since September
In November it was increased to 15 mg from 10 mg
# Hypothyroidism-continue Synthroid
# History of peptic ulcer disease-On PPI, Pepcid
# H/O Prostate CA, prostatectomy
# Allergic Asthma-PRN Nebs as OP
# Chronic ambulatory dysfunction
Patient ambulates with a cane. Refuses to use a walker per .
# DVT prophylaxis on subcutaneous heparin
# Full code-CODE STATUS discussed he wants to be full code
D/W RN at bed side
Time spent 52 min
Anticipated Discharge: > 48 hours
Subjective/Interval History
-
Date of Service: January 09, 2024
Objective Data
-
Labs:
Laboratory Results
01/09/24
13:54
WBC 13.4 H
Hgb 10.6 L
Hct 32.7 L
Plt Count 130
Sodium 133 L
Potassium 4.0
Chloride 105
Carbon Dioxide 23
BUN 33 H
Creatinine 1.2
Glucose 221 H
Calcium 8.1 L
Vital Signs:
Vital Signs
Temp Pulse Resp BP Pulse Ox
98.2 F 94 19 130/65 97
01/09/24 15:50 01/09/24 16:00 01/09/24 16:00 01/09/24 14:00 01/09/24 15:22
I&O
01/08/24 01/09/24 01/10/24
06:59 06:59 06:59
Intake Total 560 / 560
Output Total 450 / 450
Balance 110 / 110
--- NOTE | 2024-01-09 17:00 | PTCARENOTE ---
Audible I/E wheezing noted all day worse with exertion- unable to wean off o2 became very tachypneic 28-30s. 2L NC 98%. OOB in chair all day, bsc x2 voiding and small bm each time. Regular diet ordered- received tray- appetite fair. Tolerating
po fluids, IVF capped not renewed. Neuro checks as ordered.
[2024-01-09] MEDS: OMNIPAQUE 50 ML PO (17:28)
[2024-01-09] MEDS: ROCEPHIN 2000 MG IV (21:54)
[2024-01-09] MEDS: STERILE WATER FOR INJECTION 20 ML IV (21:54)
[2024-01-09] MEDS: NORCO 5/325 1 TABLET PO (21:54)
[2024-01-09] MEDS: LIPITOR 80 MG PO (21:55)
[2024-01-09] MEDS: PEPCID 20 MG PO (21:55)
[2024-01-09] MEDS: ASPIR LOW (ENTERIC COATED) 81 MG PO (21:55)
[2024-01-09] MEDS: VIBRAMYCIN 100 MG PO (21:55)
--- NOTE | 2024-01-09 22:24 | PTCARENOTE ---
CT Abd cancelled. Unable to complete d/t barium from swallow study earlier today. Per certified pest control technician need time to flush out barium and Abd XR before drinking contrast for the repeat CT scan.
/ daughter upset pt did not receive Neb tx today after VSE, support provided. Pt made aware if he needs prn neb tx overnight to notify staff.
Call prasad and tray table within reach.
[2024-01-10] VITALS (17 sets, daily range): BP systolic 96–138; BP diastolic 50–88; PULSE 69–87; BMI 26.9
[2024-01-10] MEDS: SOLU-CORTEF 50 MG IV ×2 (01:00→09:06)
--- NOTE | 2024-01-10 04:30 | PTCARENOTE ---
Tele monitor alarming HR 130s. Upon entering room, pt was found attempting to sit at edge of bed. Audible wheezing and dyspnea present. Sp02 88% on 1L. NC increased to 5L, Sp02 increased to 95-99%. RR 30s. Coached pt on taking slow breaths in threw
his nose. Respirations able to decrease. Pt stated he had a dream and forgot he was in the hospital. [employer] Belinda made aware of wheezing/dyspnea. Subsequently dyspnea and wheezing subsided after some time without intervention.
Pt able to void and have large BM in BSC. pt reported some dizziness prior to standing. BP stable. Lab work drawn. Call prasad within reach. reports sometimes his heart rate increases when pain stimulator activates.
[2024-01-10 04:59] LABS: Hematocrit 29.5 % (39.0-52.0); Hemoglobin 10.1 g/dL (13.0-18.0); Mean Corp Hgb Conc. 34.2 g/dL (33.0-37.0); Mean Corpuscular Hgb 29.5 pg (27.0-31.0); Mean Corpuscular Volume 86.3 fL (80.0-94.0); Mean Platelet Volume 10.7 fL (7.4-10.4); Platelet Count 138 10^3/uL (130-400); Red Blood Cell Count 3.42 10^6/uL (4.70-6.10); Red Cell Dist. Width 15.6 % (11.5-14.5); White Blood Cell Count 12.2 10^3/uL (4.8-10.8)
[2024-01-10 05:20] LABS: Blood Urea Nitrogen 30 mg/dl (9-20); Carbon Dioxide 18 mmol/L (22-30); Chloride 108 mmol/L (98-107); Estimated Creatinine Clearance 39 ml/min; Glucose 152 mg/dl (70-99); Sodium 135 mmol/L (135-145); eGFR > 60.00
[2024-01-10] MEDS: SYNTHROID 50 MCG PO (06:25)
[2024-01-10] MEDS: VENTOLIN NEBULES 2.5 MG INH ×2 (07:59→11:50)
--- NOTE | 2024-01-10 08:37 | W.PN.CARDCBS ---
Today's Communication / Plan
-
medical management of CAD
pneumonia therapy as you are
will follow
Impression / Plan
-
PCP: Dr. Echols
Cardiology: Dr. Mercado
Impression:
Presented with cough, weakness
Acute hypoxic respiratory insufficiency
Sepsis due to PNA
Elevated troponin
MARIA ESTHER
CAD
h/o RCA PCI 07/23/2016
residual 80% stenosis of OM2 noted w/ 50% ostial LM stenosis 07/23/2016
HTN
HLD
Chronic dyspnea
Chronic back pain w/ epidural pain pump and spinal stimulator
RBBB
Prostate cancer
Hypothyroidism
Lexiscan stress test 06/25/2023: Perfusion imaging reveals a small area of mildly decreased perfusion that is fixed in the basal inferior segment
Echo 08/13/2023: EF 60-65%, moderate cLVH, stage II diastolic dysfunction, dense posterior MAC w/ mild to moderate MR, aortic sclerosis without stenosis, mild TR, estimated PAP 51 mmHg
Echo 01/08/2024: EF 55 to 60%, moderate concentric LVH, no significant valvular disease
Plan:
-Presented with weakness, cough, and SOB. Admitted with sepsis due to PNA. covid, flu negative. blood cultures negative thus far. abx per primary service.
-for VSE today
-wean supp O2 as able
-Cardiology consulted due to elevated troponin, peak 0.656, trending down thereafter. he does report some intermittent chest discomfort which he describes as a jolting/stabbing pain
-has h/o CAD with RCA stenting in 2015 with residual LM and OM2 disease as above
-EKG SR with RBBB, no acute ischemic changes noted
-echo with preserved EF, as above. results reviewed with patient and family at bedside 01/08.
-last stress test from 05/2023 as above
-managing as nonischemic myocardial injury. continue medical therapy at this time
-Continue aspirin, plavix, statin, toprol, IMDUR
-Follow volume status closely. his weights are currently stable and not considering a diuretic at this time
-will arrange OP cardiac follow up and at that time can consider for ischemic evaluation once recovered from PNA standpoint
-d/w nursing
HPI: Geovany is an 88 year old male with PMH of CAD w/ prior RCA PCI, HTN, HLD, chronic back pain, RBBB, prostate cancer, and hypothyroidism. He presented to [facility] due to SOB, weakness, and cough. He had reportedly been feeling unwell for a few days,
but yesterday evening, he was unable to get out of bed due to weakness, and EMS was called. In ER, he was found to be hypoxic and was placed on 4L NC. He was febrile with temp of 101.5 and also was hypotensive. Labwork revealed leukocytosis with
elevated procalcitonin. Flu and Covid negative. He was admitted with sepsis and started on IVFs and IV antibiotics. Cardiology consulted due to elevated troponin which trended upwards to 0.656. He reports no chest pain or SOB at this time.
Progress Note - Snow Technician
Subjective
Date of Service: January 10, 2024
breathing a little better and cough a little better
Objective
Labs:
01/10/24 04:22
01/10/24 04:22
Labs
Hgb 10.1 g/dL (13.0-18.0) L 01/10/24 04:22
Hct 29.5 % (39.0-52.0) L 01/10/24 04:22
Plt Count 138 10^3/uL (130-400) 01/10/24 04:22
PT 13.2 Sec (11.4-14.6) 01/08/24 01:15
INR 1.00 01/08/24 01:15
Sodium 135 mmol/L (135-145) 01/10/24 04:22
Potassium 4.0 mmol/L (3.5-5.1) 01/10/24 04:22
BUN 30 mg/dl (9-20) H 01/10/24 04:22
Creatinine 1.0 mg/dL (0.7-1.3) 01/10/24 04:22
Glucose 152 mg/dl (70-99) H 01/10/24 04:22
Troponins
01/08/24 01/08/24 01/08/24
01:15 05:23 11:27
Troponin I 0.326 H* 0.656 H* D 0.629 H*
01/08/24
17:00
Troponin I Cancelled
Vital Signs and I&O:
Vital Signs
Temp Pulse Resp BP Pulse Ox
97.5 F 70 19 117/58 96
01/10/24 07:45 01/10/24 08:02 01/10/24 08:02 01/10/24 06:00 01/10/24 08:02
Vital Signs
Temp Pulse Resp BP Pulse Ox
97.5 F 70 19 117/58 96
01/10/24 07:45 01/10/24 08:02 01/10/24 08:02 01/10/24 06:00 01/10/24 08:02
Intake & Output
01/08/24 01/09/24 01/10/24 01/11/24
06:59 06:59 06:59 06:59
Intake Total 560 / 560 1340 / 1340
Output Total 450 / 450 580 / 580
Balance 110 / 110 760 / 760
Physical Exam
Physical Exam
heent ncat
rhonchi right >left
lungs diminished
oxygen in place
cor regular
lungs ctab
abd soft nt nd
no ext edema
aao x 3
[2024-01-10] MEDS: HEPARIN 5000 UNITS SC ×2 (09:06→19:41)
[2024-01-10] MEDS: PROTONIX IV 40 MG IV (09:06)
[2024-01-10] MEDS: NSS (PRESERVATIVE FREE) 10 ML IV (09:06)
[2024-01-10] MEDS: MUCINEX 600 MG PO ×2 (09:07→19:39)
[2024-01-10] MEDS: IMDUR (EXTENDED RELEASE) 30 MG PO (09:07)
[2024-01-10] MEDS: PLAVIX 75 MG PO (09:07)
[2024-01-10] MEDS: VIBRAMYCIN 100 MG PO ×2 (09:07→19:39)
[2024-01-10] MEDS: TOPROL XL 25 MG PO (09:07)
--- NOTE | 2024-01-10 10:37 | W.PN.HOSP.TC ---
Today's Communication/Plan
-
see bold
Assessment / Plan
Assessment / Plan
Gen: appears mildly SOB, AAOx3, appears chronically ill.
Eyes: EOMI, PERRLA, no scleral icterus.
Neck: supple.
CV: RRR, +S1/S2, no m/r/g.
Resp: mild, diffuse, wheezes and rhonchi.
Abd: +BS, soft, diffuse TTP, ND
Skin: No rashes.
Neuro: CN 2-12 intact, non-focal.
Psych: Normal mood and affect.
CXR 01/08/24: There is new elevation of the right hemidiaphragm such as may be seen with paralysis of the right hemidiaphragm
CXR 01/09/24: No acute disease of the chest. Moderate elevation of the right hemidiaphragm. Stable.
Sepsis, POA:
-with acute metabolic encephalopathy
-source unclear
-PNA has been ruled out
-U/A without evidence of infection
-CT A/P pending
-currently on Doxy/Rocephin, continue for now
Acute hypoxic respiratory insufficiency:
-CXR without infiltrate
-COVID/flu NEG
-PNA has been ruled out (no infiltrate)
-currently on 4L NC O2
-check CT chest, c/s pulm
MARIA ESTHER:
-resolved with IVFs
-with non-AG met acidosis change IVFs to NaHCO3
Mild hypotension:
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
-currently on IV Hydrocortisone, wean
CAD
-with elevated troponin
-Echo: EF 55-60%, no RWMA
-h/o stenting of RCA 2014
-appreciate cardiology
-cont BB/ASA/statin/Plavix
Other problems:
Prolonged QTc (501ms): Mg 2.0
Chronic RBBB
Essential Hypertension: Cont BB/Imdur
Hyperlipidemia: continue statin
Chronic back pain: patient has a spinal stimulator and epidural analgesic pump (chronic opioid dependence)
Arthritis: on chronic prednisone
DJD/osteoporosis
Hypothyroidism: continue Synthroid
PUD: cont PPI
h/o Prostate CA s/p prostatectomy
Allergic Asthma
Chronic ambulatory dysfunction
Approximately 5 family members updated at length at bedside. RN updated.
FULL/Heparin
Total time spent on today's encounter was 50 minutes which included time spent in counseling the patient/family regarding diagnosis and treatment plan as listed above, goals of care, and symptom management. Case was discussed with nursing staff,
specialists, and care coordinators/case management. All labs and imaging personally reviewed by me. Remainder the time spent in detailed review of previous records, lab data, imaging, and other medical provider documentation.
Anticipated Discharge: > 48 hours
Subjective/Interval History
-
Date of Service: January 10, 2024
Pt c/o CP/SOB/abd pain.
Objective Data
-
Labs:
Laboratory Results
01/10/24
04:22
WBC 12.2 H
Hgb 10.1 L
Hct 29.5 L
Plt Count 138
Sodium 135
Potassium 4.0
Chloride 108 H
Carbon Dioxide 18 L
BUN 30 H
Creatinine 1.0
Glucose 152 H
Calcium 8.0 L
Vital Signs:
Vital Signs
Temp Pulse Resp BP Pulse Ox
97.5 F 79 15 117/58 94
01/10/24 07:45 01/10/24 09:00 01/10/24 09:00 01/10/24 06:00 01/10/24 09:29
I&O
01/09/24 01/10/24 01/11/24
06:59 06:59 06:59
Intake Total 560 / 560 1340 / 1340
Output Total 450 / 450 580 / 580
Balance 110 / 110 760 / 760
--- NOTE | 2024-01-10 11:02 | W.PN.ID1 ---
Date of Service
Date of Service: January 10, 2024
Today's Communication
- continue ceftriaxone/doxycycline for now - short course of therapy may be considered
Assessment / Plan
Fever -resolved
Sepsis - resolved
Leukocytosis - improving
MARIA ESTHER vs CKD
Pain pump and spinal stimulator
- procal was elevated on arrival in setting of MARIA ESTHER - not interpretable
- blood cultures x2 in progress
- sputum culture usual resp keila
- no carlos a infiltrate on initial CXR - repeat today - 2 view if feasible
- CT a/p is planned, not yet done
- covid and influenza antigens neg
- follow renal function
- continue ceftriaxone/doxycycline for now - short course of therapy may be considered
- follow clinically
Chief Complaint
-: Fever and Leukocytosis
Subjective / Review of Systems
afebrile
bp stable
on 4L NC
declining leukocytosis
cr 1.0
[address] helper [address]: barium remains in colon - no further imaging done
CXR: no acute disease
resp culture usual resp keila
blood cultures no growth to date
Vital Signs / Physical Exam
Vital Signs
Vital Signs
Temp Pulse Resp BP Pulse Ox
97.5 F 79 15 117/58 94
01/10/24 07:45 01/10/24 09:00 01/10/24 09:00 01/10/24 06:00 01/10/24 09:29
Physical Exam
Constitutional: No Acute Distress and Chronically Ill
Cardiovascular: Regular Rate and S1/S2; Negative Murmur or Rub
Pulmonary: Symmetric, Coarse and Other (coughing); Negative Wheezes or Rales
Gastrointestinal: Soft, Non Tender, Non Distended and Normal Bowel Sounds
Skin: Warm and Dry; Negative Rash or Jaundice
Objective Data
Lab Data
Lab Results
01/10/24 04:22
01/10/24 04:22
PT 13.2 Sec (11.4-14.6) 01/08/24 01:15
INR 1.00 01/08/24 01:15
Estimated Creat Clear 39 ml/min 01/10/24 04:22
Lactic Acid 1.5 mmol/L (0.7-2.0) 01/08/24 06:43
Total Bilirubin 0.6 mg/dl (0.2-1.3) 01/08/24 05:23
AST 61 U/L (17-59) H 01/08/24 05:23
ALT 45 U/L (0-50) 01/08/24 05:23
Alkaline Phosphatase 66 U/L (38-126) 01/08/24 05:23
Most recent labs reviewed.
Micro Results:
01/08/24 02:32 Blood Culture - Preliminary
Blood/Venous No Growth in 48 hours- Final report to follow
01/08/24 02:32 Blood Culture - Preliminary
Blood/Venous No Growth in 48 hours- Final report to follow
01/08/24 09:35 Respiratory Culture - Preliminary
Sputum Usual Respiratory Keila
Gram Stain - Preliminary
01/08/24 19:38 Nasal Screen MRSA (PCR) - Final
Nose MRSA not detected - performed by PCR methodology.
01/08/24 01:15 Influenza Types A & B (FE) - Final
Nasal Swab Negative for Influenza A & B, NAAT
Negative results must be combined with clinical observations
and patient history.
Nucleic Acid Amplification test (NAAT)performed on the
[employer] platform.
[2024-01-10] MEDS: SODIUM BICARBONATE 1150 MEQ IV (11:37)
--- NOTE | 2024-01-10 12:57 | PTCARENOTE ---
Pt presents as assessed. Aox3, very [place]. NSR with Prolonged QT on tele monitor. Audible wheezing noted. Sating mid 90's on 4L NC. OOB to chair. IVF infusing as ordered. Family at bedside and anxious regarding plan of care. Questions answered and
emotional support provided. Able to make needs known, call prasad within reach.
--- NOTE | 2024-01-10 14:36 | CON.PUL ---
Addendum entered and electronically signed by Vidhya Montenegro MD 01/10/24 14:57:
Mildly elevated troponin noted
Echocardiogram with normal biventricular function, moderate MR. Right heart pressures cannot be determined
Check lower extremity Dopplers bilaterally
Remains on subcutaneous heparin every 12 for DVT prophylaxis
Original Note:
Consultation
Consultation Request
Date/Time Consultation Requested: 01/10/24
Date/Time Consultation Performed: 01/10/24
Reason for Consultation: Pulmonary
Medical History
-
History of Present Illness:
History obtained from the chart, outpatient records, patient, and daughter at bedside. 88-year-old male with history of hyperlipidemia, hypertension, asthma, coronary disease who presented 01/08/2024 by ambulance because of general weakness and
shortness of breath. Patient states he has been feeling more congested and short of breath for weeks to months. Describes productive cough with yellow mucus, no blood. Denies any chest pain, recent falls. There may be questionable dysphagia,
denies any fevers, chills. Upon arrival to [facility], was found to have a pulse of 125, breathing at 28, blood pressure 143/71, 94%. Patient was noted to be tachypneic and tachycardic. He was given IV steroids, nebulized therapy.
Symptoms improved in the ED. Found to have creatinine 1.5 and elevated troponin and proBNP. Elevated right hemidiaphragm noted on chest x-ray. Patient was admitted. Hospital course reviewed. Patient was treated with vancomycin/Zosyn, transition
to vancomycin/cefepime/doxycycline. Swallowing evaluation showed upper penetration with liquid barium consecutive sips with straw but no obvious aspiration. Patient developed abdominal pain, abdominal CT imaging was ordered. Patient required 4 L
of oxygen. We are asked to comment on pulmonary process
Of note, large amount of barium was noted in the colon following swallowing study, therefore precluding repeat imaging
.
PMH: Chronic bronchitis, cough variant asthma, GERD, hypertension, chronic back pain, coronary disease with stent, prostate cancer, hyperlipidemia, hypothyroidism, macular degeneration. History of appendectomy, multiple back surgeries,
neurostimulator, bilateral knee replacement
Past Medical History
Past Medical History: None (See above)
Past Surgical History: None (See above)
Social History
Tobacco: Non-smoker
Alcohol: None
Drug: None
Personal:
Living: With Family
Employment: Retired
Family History
Family History: Other (Children are healthy. Family history negative for blood clots. Father at age 79 history of prostate cancer, mother at age 93)
Allergies / Home Medications
Allergies
Allergy/AdvReac Type Severity Reaction Status Date / Time
No Known Allergies Allergy Verified 01/08/24 01:06
Home Medications
�Medication �Instructions �Recorded �Confirmed �Last Taken �Type
denosumab 60 mg/mL subcutaneous 60 mg IV [id number] Bone-Modifying 07/23/16 01/08/24 02/28/16 History
syringe (Prolia) Agent; Monoclonal Antibody 1 infusion
nitroglycerin 0.4 mg sublingual 0.4 mg sublingual [id number] PRN 07/23/16 01/08/24 Unknown Rx
tablet chest pain #1 tab
albuterol sulfate 2.5 mg/3 mL 2.5 mg (3 mL) inhalation R Q4HPRN 08/05/20 01/08/24 Unknown Rx
(0.083 %) solution for nebulization PRN sob/wheezing ##0
aspirin 81 mg tablet,delayed 81 mg PO HS ##0 08/05/20 01/08/24 08/01/20 Rx
release
atorvastatin 80 mg tablet 80 mg PO HS ##0 08/05/20 01/08/24 08/01/20 Rx
clopidogrel 75 mg tablet 75 mg PO DAILY #30 tabs 08/05/20 01/08/24 08/02/20 Rx
famotidine 20 mg tablet 20 mg PO HS ##0 08/05/20 01/08/24 08/01/20 Rx
acetaminophen 325 mg tablet 650 mg PO Q8HPRN PRN mild 01/08/24 01/08/2401/06/24 History
pain/MELCHOR/temp> 101F
guaifenesin 600 mg tablet, 600 mg PO HS Congestion 01/08/24 01/08/24 Unknown History
extended release 12 hr (Mucinex)
hydrocodone 5 mg-acetaminophen 325 1 tab PO BID Pain 01/08/24 01/08/24 Unknown History
mg tablet
isosorbide mononitrate 30 mg 30 mg PO DAILY Heart 01/08/24 01/08/24 Unknown History
tablet,extended release 24 hr Disease/Condition
levothyroxine 50 mcg tablet 50 mcg PO DAILY@1600 Thyroid 01/08/24 01/08/24 Unknown History
(Synthroid)
pantoprazole 40 mg tablet,delayed 40 mg PO DAILY gerd 01/08/24 01/08/24 Unknown History
release
prednisone 10 mg tablet 15 mg PO DAILY inflammation 01/08/24 01/08/24 Unknown History
hydromorphone-bupiv (PF)-NaCl intrathecal UD Pain 01/09/24 Unknown History
metoprolol succinate 25 mg 25 mg PO DAILY Blood Pressure 01/09/24 01/08/24 Unknown History
tablet,extended release 24 hr
mirabegron 50 mg tablet,extended 50 mg PO DAILY Urinary Issue 01/09/24 01/08/24 Unknown History
release 24 hr (Myrbetriq)
vit C 250 mg-vit E 90 mg-zinc 40 1 cap PO BID Eye Condition 01/09/24 01/08/24 Unknown History
mg-copper 1 [id number]-bqjryf
capsule (PreserVision AREDS-2)
Review of Systems
-
All other systems: Negative unless noted
Vitals / Labs / Diagnostic Testing
Vital Signs
Temp Pulse Resp BP Pulse Ox
97.5 F 72 21 115/59 94
01/10/24 11:04 01/10/24 14:00 01/10/24 14:00 01/10/24 14:00 01/10/24 14:00
Lab Data
01/10/24 04:22
01/10/24 04:22
Microbiology
01/08/24 09:35 Sputum Respiratory Culture - Final
Usual Respiratory Sarah
01/08/24 09:35 Sputum Gram Stain - Final
01/08/24 02:32 Blood/Venous Blood Culture - Preliminary
No Growth in 48 hours- Final report to follow
01/08/24 02:32 Blood/Venous Blood Culture - Preliminary
No Growth in 48 hours- Final report to follow
01/08/24 19:38 Nose Nasal Screen MRSA (PCR) - Final
MRSA not detected - performed by PCR methodology.
01/08/24 01:15 Nasal Swab Influenza Types A & B (FE) - Final
Negative for Influenza A & B, NAAT
Negative results must be combined with clinical observations
and patient history.
Nucleic Acid Amplification test (NAAT)performed on the
[employer] platform.
Diagnostic Testing:
Physical Exam
-
HEENT: Normocephalic and Anicteric
Cardiovascular: S1/S2, Regular Rhythm, Murmur (n), Peripheral Edema (n), Calf Tenderness (n) and Other (Decreased right base)
Respiratory: Wheeze (Scattered expiratory), Rales (n), Rhonchi (Few) and Non-Labored Respirations
GI: Soft, Non Distended and Non Tender
Neurology: Awake, Alert, Oriented and No Motor Deficits (Generally weak, able to sit up without assistance)
Skin: Other (Scattered ecchymoses, no clubbing)
General: Comfortable
Assessment
-
88-year-old male with history of cough variant asthma, hypertension, hyperlipidemia, coronary disease, presents with generalized weakness, cough. Elevated right hemidiaphragm noted on exam, treated for pneumonia. We are asked to comment on
pulmonary process
Diffuse wheezing on exam
Chronic bronchitis, productive
Subjective dyspnea, progressive x 4 to 6 weeks
Elevated right hemidiaphragm
Elevated troponin
Acute renal insufficiency
Suspected aspiration syndrome
Describes dysphagia as outpatient
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
Conditions present prior to admission
Mild sleep apnea, index 5
History of cough variant asthma
Mixed obstructive/restrictive lung disease
FVC 2.00/69%, FEV1 1.37/70%, ratio 68
Chronic kidney disease
Hypertension/hyperlipidemia
Hypothyroidism
Coronary disease, stent 2016
Right bundle branch block
Chronic back pain, spinal stimulator
History of prostate cancer
Plan/recommendations
At this time, patient with complex medical history
Salient features include elevated right hemidiaphragm which is new when compared to imaging in 2020, diffuse wheezing on exam, suspicion for aspiration syndrome despite negative VSE
Patient has yet to get CT imaging of the chest
No history of prior CT imaging noted
Patient on Flovent as outpatient. Elevated exhaled nitric oxide noted as outpatient suggesting inflammatory airways disease
Moving forward
Await CT imaging
Sputum cultures to date negative
Will ramp up airway clearance. Start nebulized budesonide and DuoNebs
It is noted that patient is on chronic prednisone therapy for unclear reasons. Presently on hydrocortisone
Patient is also maintained on ceftriaxone/doxycycline. ID following
Although right lower lobe pneumonia suspected, will await CT imaging as I have a low suspicion for active pulmonary infection at this time
Positional therapy, head of bed elevated. Despite negative video swallowing study, aspiration remains a risk for my review
Reviewed with patient, family at bedside
We will follow
[2024-01-10] MEDS: DUONEB 3 ML INH ×2 (15:38→20:16)
[2024-01-10] MEDS: SOLU-CORTEF 25 MG IV ×2 (17:10→23:21)
[2024-01-10] MEDS: VENTOLIN NEBULES INH (18:10)
[2024-01-10] MEDS: TYLENOL 650 MG PO (19:39)
[2024-01-10] MEDS: STERILE WATER FOR INJECTION 20 ML IV (19:40)
[2024-01-10] MEDS: ROCEPHIN 2000 MG IV (19:40)
[2024-01-10] MEDS: PULMICORT 0.5 MG INH (20:16)
[2024-01-10] MEDS: PEPCID 20 MG PO (21:48)
[2024-01-10] MEDS: NORCO 5/325 1 TABLET PO (21:48)
[2024-01-10] MEDS: LIPITOR 80 MG PO (21:48)
[2024-01-10] MEDS: ASPIR LOW (ENTERIC COATED) 81 MG PO (21:48)
[2024-01-11] VITALS (16 sets, daily range): BP systolic 100–137; BP diastolic 40–102; PULSE 82–106; BMI 27.5
--- NOTE | 2024-01-11 00:47 | PTCARENOTE ---
pt resting in bed. pt continues w/ harsh, moist productive cough.SpO2= 98% on 3L. orthostatic v/s negative. pt assisted to BSC x1 for a small watery bm. IVF running.
Obtained order from GLENDA Vines for abd/pelvis xray to assess contrast. scan completed. to follow up in am w/ docs re: reordering ct of abd/pelvis with or w/o contrast.
[2024-01-11] MEDS: SYNTHROID 50 MCG PO (04:58)
[2024-01-11] MEDS: SODIUM BICARBONATE 1150 MEQ IV (04:58)
[2024-01-11] MEDS: PULMICORT 0.5 MG INH ×2 (07:18→20:12)
[2024-01-11] MEDS: DUONEB 3 ML INH ×4 (07:18→20:12)
[2024-01-11] MEDS: NSS (PRESERVATIVE FREE) 10 ML IV (08:30)
[2024-01-11] MEDS: IMDUR (EXTENDED RELEASE) 30 MG PO (08:30)
[2024-01-11] MEDS: MUCINEX 600 MG PO ×2 (08:30→20:18)
[2024-01-11] MEDS: PROTONIX IV 40 MG IV (08:30)
[2024-01-11] MEDS: SOLU-CORTEF 25 MG IV ×3 (08:31→23:33)
[2024-01-11] MEDS: HEPARIN 5000 UNITS SC ×2 (08:33→20:19)
[2024-01-11] MEDS: TOPROL XL 25 MG PO (08:35)
[2024-01-11] MEDS: PLAVIX 75 MG PO (08:35)
[2024-01-11] MEDS: VIBRAMYCIN 100 MG PO ×2 (08:35→20:18)
[2024-01-11] MEDS: MILK OF MAGNESIA 30 ML PO (09:55)
--- NOTE | 2024-01-11 10:40 | W.PN.ID1 ---
Date of Service
Date of Service: January 11, 2024
Today's Communication
- continue ceftriaxone/doxycycline for now - short course of therapy may be considered - currently day 4
Assessment / Plan
Fever -resolved
Sepsis - resolved
Leukocytosis - improving
MARIA ESTHER vs CKD - improving
Pain pump and spinal stimulator
- procal was elevated on arrival in setting of MARIA ESTHER - not interpretable
- blood cultures x2 in progress
- sputum culture usual resp keila
- CXR not yet done - CT pending, I have ordered CXR in the interum
- covid and influenza antigens neg
- follow renal function
- continue ceftriaxone/doxycycline for now - short course of therapy may be considered - currently day 4
- follow clinically
Chief Complaint
-: Fever and Leukocytosis
Subjective / Review of Systems
no further fevers
bp stable
AXR nonrevealing
CXR not yet done - CT pending, I have ordered CXR in the interum
no new complaints
Vital Signs / Physical Exam
Vital Signs
Vital Signs
Temp Pulse Resp BP Pulse Ox
97.7 F 71 16 104/58 95
01/11/24 08:06 01/11/24 10:00 01/11/24 10:00 01/11/24 10:00 01/11/24 10:00
Physical Exam
Constitutional: No Acute Distress
Cardiovascular: Regular Rate and S1/S2; Negative Murmur or Rub
Pulmonary: Clear and Symmetric; Negative Wheezes or Rales
Gastrointestinal: Soft, Non Tender, Non Distended and Normal Bowel Sounds
Skin: Warm and Dry; Negative Rash or Jaundice
Objective Data
Lab Data
Lab Results
01/10/24 04:22
01/10/24 04:22
PT 13.2 Sec (11.4-14.6) 01/08/24 01:15
INR 1.00 01/08/24 01:15
Estimated Creat Clear 39 ml/min 01/10/24 04:22
Lactic Acid 1.5 mmol/L (0.7-2.0) 01/08/24 06:43
Total Bilirubin 0.6 mg/dl (0.2-1.3) 01/08/24 05:23
AST 61 U/L (17-59) H 01/08/24 05:23
ALT 45 U/L (0-50) 01/08/24 05:23
Alkaline Phosphatase 66 U/L (38-126) 01/08/24 05:23
Most recent labs reviewed.
Micro Results:
01/08/24 02:32 Blood Culture - Preliminary
Blood/Venous No Growth in 72 hours- Final report to follow
01/08/24 02:32 Blood Culture - Preliminary
Blood/Venous No Growth in 72 hours- Final report to follow
01/08/24 09:35 Respiratory Culture - Final
Sputum Usual Respiratory Keila
Gram Stain - Final
01/08/24 19:38 Nasal Screen MRSA (PCR) - Final
Nose MRSA not detected - performed by PCR methodology.
01/08/24 01:15 Influenza Types A & B (FE) - Final
Nasal Swab Negative for Influenza A & B, NAAT
Negative results must be combined with clinical observations
and patient history.
Nucleic Acid Amplification test (NAAT)performed on the
[employer] (formerly [employer]) platform.
--- NOTE | 2024-01-11 10:53 | W.PN.HOSP.TC ---
Today's Communication/Plan
-
Bowel regimen
Abdomen x-ray
BMP
Continue antibiotics
Await CAT scan
Assessment / Plan
Assessment / Plan
CXR 01/08/24: There is new elevation of the right hemidiaphragm such as may be seen with paralysis of the right hemidiaphragm
CXR 01/09/24: No acute disease of the chest. Moderate elevation of the right hemidiaphragm. Stable.
CVS: S1-S2 normal
Chest: coarse BS , Rales short wheezes on left
Abdomen: Soft, NT / Bowel sounds present
Extremities: No edema
PATIENT MANAGER: Non focal exam
#Sepsis, POA:
-with acute metabolic encephalopathy-Improved
-source unclear-Possible pneumonia given clinical exam.
-U/A without evidence of infection
-CT A/P pending also CT chest
-currently on Doxy/Rocephin, continue for now
-CAT scan of the abdomen and pelvis pending because of the Valium presented from barium swallow study 01/09/2024. X-ray of the abdomen from 01/10/2024 reviewed by me still has barium. Will give bowel regimen and repeat an x-ray today
#Acute hypoxic respiratory insufficiency:
-CXR without infiltrate
-COVID/flu NEG
-currently on 4L NC O2
-check CT chest, c/s pulm
#MARIA ESTHER:
-Stop IVF
-Check BMP
#Mild hypotension:
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
-currently on IV Hydrocortisone, wean
#CAD
-with elevated troponin
-Echo: EF 55-60%, no RWMA
-h/o stenting of RCA 2014
-appreciate cardiology
-cont BB/ASA/statin/Plavix
#Thrombocytopenia resolved
#Prolonged QTc (501ms): Mg 2.0
#Chronic RBBB
#Essential Hypertension: Cont BB/Imdur
#Hyperlipidemia: continue statin
#Chronic back pain: patient has a spinal stimulator and epidural analgesic pump (chronic opioid dependence)
#Arthritis: on chronic prednisone
#DJD/osteoporosis
#Hypothyroidism: continue Synthroid
#PUD: cont PPI
#h/o Prostate CA s/p prostatectomy
#Allergic Asthma
#Chronic ambulatory dysfunction
# DVT prophylaxis-subcutaneous heparin
# Full code
Family updated at length at bedside. RN updated.
Total time spent on today's encounter was 50 minutes which included time spent in counseling the patient/family regarding diagnosis and treatment plan as listed above, goals of care, and symptom management. Case was discussed with nursing staff,
specialists, and care coordinators/case management. All labs and imaging personally reviewed by me. Remainder the time spent in detailed review of previous records, lab data, imaging, and other medical provider documentation.
Anticipated Discharge: > 48 hours
Subjective/Interval History
-
Date of Service: January 11, 2024
Objective Data
-
Vital Signs:
Vital Signs
Temp Pulse Resp BP Pulse Ox
97.7 F 71 16 104/58 95
01/11/24 08:06 01/11/24 10:00 01/11/24 10:00 01/11/24 10:00 01/11/24 10:00
I&O
01/10/24 01/11/24 01/12/24
06:59 06:59 06:59
Intake Total 1340 / 1340 1200 / 1200
Output Total 580 / 580 200 / 200
Balance 760 / 760 1200 / 1200 -200 / -200
[2024-01-11] MEDS: SENOKOT 17.1999999999999993 MG PO ×2 (11:44→20:19)
[2024-01-11 12:15] LABS: Blood Urea Nitrogen 29 mg/dl (9-20); Calcium 7.4 mg/dl (8.4-10.2); Carbon Dioxide 29 mmol/L (22-30); Chloride 99 mmol/L (98-107); Estimated Creatinine Clearance 39 ml/min; Glucose 141 mg/dl (70-99); Potassium 3.6 mmol/L (3.5-5.1); Sodium 133 mmol/L (135-145); eGFR > 60.00
--- NOTE | 2024-01-11 14:09 | W.PN.PUL3 ---
Today's Communication / Plan
-
Continue aspiration precautions
Continue nebulized therapy
Await CT chest
Assessment
-
88-year-old male with history of cough variant asthma, hypertension, hyperlipidemia, coronary disease, presents with generalized weakness, cough. Elevated right hemidiaphragm noted on exam, treated for pneumonia. We are asked to comment on
pulmonary process
Diffuse wheezing on exam
Chronic bronchitis, productive
Subjective dyspnea, progressive x 4 to 6 weeks
Elevated right hemidiaphragm
Elevated troponin
Acute renal insufficiency
Suspected aspiration syndrome
Describes dysphagia as outpatient
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
Conditions present prior to admission
Mild sleep apnea, index 5
History of cough variant asthma
Mixed obstructive/restrictive lung disease
FVC 2.00/69%, FEV1 1.37/70%, ratio 68
Chronic kidney disease
Hypertension/hyperlipidemia
Hypothyroidism
Coronary disease, stent 2016
Right bundle branch block
Chronic back pain, spinal stimulator
History of prostate cancer
Plan/recommendations
At this time, patient with complex medical history
Salient features include elevated right hemidiaphragm which is new when compared to imaging in 2020, diffuse wheezing on exam, suspicion for aspiration syndrome despite negative VSE
Patient has yet to get CT imaging of the chest
No history of prior CT imaging noted
Patient on Flovent as outpatient. Elevated exhaled nitric oxide noted as outpatient suggesting inflammatory airways disease
Moving forward
Await CT imaging
Chest x-ray today without any acute changes. Elevated right hemidiaphragm noted
Sputum cultures to date negative
Will ramp up airway clearance. Continue nebulized budesonide and DuoNebs
It is noted that patient is on chronic prednisone therapy for unclear reasons. Presently on hydrocortisone
I do suspect that patient is chronically aspirating, and has aspiration syndrome
Reviewed aspiration precautions despite negative VSE
Patient is also maintained on ceftriaxone/doxycycline. ID following
Although right lower lobe pneumonia suspected, will await CT imaging as I have a low suspicion for active pulmonary infection at this time
Positional therapy, head of bed elevated. Despite negative video swallowing study, aspiration remains a risk for my review
May consider nocturnal oximetry prior to discharge
Reviewed with patient
Disposition efforts
Subjective Data
-
Date of Service:
Date of Service: January 11, 2024
Subjective:
Patient without any significant plaints. Seems cough is somewhat better but patient states that if he is not talking, he does not cough. Denies chest pain, nausea, abdominal pain.
Objective Data
Data Reviewed
Vital Signs / I&O / Oxygen:
Vital Signs
Temp Pulse Resp BP Pulse Ox
97.2 F 68 15 104/58 95
01/11/24 11:53 01/11/24 11:36 01/11/24 11:36 01/11/24 10:00 01/11/24 11:36
Intake and Output
01/10/24 01/11/24 01/12/24
06:59 06:59 06:59
Intake Total 1340 / 1340 1200 / 1200
Output Total 580 / 580 200 / 200
Balance 760 / 760 1200 / 1200 -200 / -200
SaO2 95
Nasal Cannula flow liters per 2
minute
Physical Exam
General: Comfortable
HEENT: Normocephalic and Anicteric
Cardiovascular: Regular Rhythm, Murmur (n) and Rub (n)
Respiratory: Wheeze (n), Crackles (n), Rhonchi (few) and Non-Labored Respirations
GI: Soft, Non Distended and Non Tender
Neurology: Awake, Alert and No Motor Deficits
Skin: Cyanosis (n), Jaundice (n) and Rash (n)
Labs/Micro/Reports
Lab Data
01/10/24 04:22
01/11/24 11:47
Microbiology
01/08/24 02:32 Blood/Venous Blood Culture - Preliminary
No Growth in 72 hours- Final report to follow
01/08/24 02:32 Blood/Venous Blood Culture - Preliminary
No Growth in 72 hours- Final report to follow
01/08/24 09:35 Sputum Respiratory Culture - Final
Usual Respiratory Sarah
01/08/24 09:35 Sputum Gram Stain - Final
01/08/24 19:38 Nose Nasal Screen MRSA (PCR) - Final
MRSA not detected - performed by PCR methodology.
[2024-01-11] MEDS: CITROMA 300 ML PO (17:11)
[2024-01-11] MEDS: TYLENOL 650 MG PO (20:18)
[2024-01-11] MEDS: ROCEPHIN 2000 MG IV (20:19)
[2024-01-11] MEDS: STERILE WATER FOR INJECTION 20 ML IV (20:19)
[2024-01-11] MEDS: PEPCID 20 MG PO (21:12)
[2024-01-11] MEDS: ASPIR LOW (ENTERIC COATED) 81 MG PO (21:13)
[2024-01-11] MEDS: LIPITOR 80 MG PO (21:13)
[2024-01-12] VITALS (22 sets, daily range): BP systolic 101–155; BP diastolic 47–100; PULSE 67–83; BMI 26.9
[2024-01-12] MEDS: SYNTHROID 50 MCG PO (05:04)
[2024-01-12 05:54] LABS: Hematocrit 27.5 % (39.0-52.0); Hemoglobin 9.4 g/dL (13.0-18.0); Mean Corp Hgb Conc. 34.2 g/dL (33.0-37.0); Mean Corpuscular Hgb 29.7 pg (27.0-31.0); Mean Corpuscular Volume 86.8 fL (80.0-94.0); Mean Platelet Volume 10.8 fL (7.4-10.4); Platelet Count 146 10^3/uL (130-400); Red Blood Cell Count 3.17 10^6/uL (4.70-6.10); White Blood Cell Count 8.3 10^3/uL (4.8-10.8)
[2024-01-12 06:25] LABS: Blood Urea Nitrogen 27 mg/dl (9-20); Calcium 7.8 mg/dl (8.4-10.2); Carbon Dioxide 29 mmol/L (22-30); Chloride 98 mmol/L (98-107); Estimated Creatinine Clearance 39 ml/min; Glucose 170 mg/dl (70-99); Potassium 3.7 mmol/L (3.5-5.1); Sodium 136 mmol/L (135-145); eGFR > 60.00
--- NOTE | 2024-01-12 06:28 | PTCARENOTE ---
pt unable to drink citrate - only taken tiny sips through the night. - kept encouraging the pt to try.
pt placed on room air ranging 93%
[2024-01-12] MEDS: DUONEB 3 ML INH ×4 (07:42→20:38)
[2024-01-12] MEDS: PULMICORT 0.5 MG INH ×2 (07:42→20:38)
--- NOTE | 2024-01-12 08:55 | W.PN.CARDCBS ---
Addendum entered and electronically signed by Lulu Mario MD 01/12/24 10:37:
I saw and examined the patient.
The [employer]'s note was reviewed and I agree with the note.
Comment: He is upset today given testing he is undergoing and need to hold breakfast. Also difficulty with blood draws. Defer to primary service. Nursing working with the patient.
He denies chest discomfort.
Nonischemic troponin elevation likely multifactorial on admission. Known coronary disease with stress test 05/2023. Follow as an outpatient. Continue current medications. Telemetry stable.
Volume status is difficult to ascertain. proBNP 13,000 on admission. Reassess tomorrow.
Continue pulmonary assessment with possible aspiration of concern.
Original Note:
Today's Communication / Plan
-
Continue antibiotics
Continue medical therapy w/ aspirin, plavix, statin, toprol, IMDUR
Consider outpt ischemic eval
Impression / Plan
-
PCP: Dr. Echols
Cardiology: Dr. Mercado
Impression:
Presented 01/08/24 with cough, weakness
Acute hypoxic respiratory insufficiency
Sepsis due to PNA
Elevated troponin, peaked 0.629
MARIA ESTHER
CAD
h/o RCA PCI 07/23/2016
residual 80% stenosis of OM2 noted w/ 50% ostial LM stenosis 07/23/2016
HTN
HLD
Chronic dyspnea
Chronic back pain w/ epidural pain pump and spinal stimulator
RBBB
Prostate cancer
Hypothyroidism
Lexiscan stress test 06/25/2023: Perfusion imaging reveals a small area of mildly decreased perfusion that is fixed in the basal inferior segment
Echo 08/13/2023: EF 60-65%, moderate cLVH, stage II diastolic dysfunction, dense posterior MAC w/ mild to moderate MR, aortic sclerosis without stenosis, mild TR, estimated PAP 51 mmHg
Echo 01/08/2024: EF 55 to 60%, moderate concentric LVH, no significant valvular disease
Plan:
-Presented 01/08/24 with weakness, cough, and SOB. Admitted with sepsis due to PNA. covid, flu negative. blood cultures negative thus far. Continue abx ceftriaxone/doxycycline per primary service.
-Concern for aspiration pneumonia despite negative VSE.
-CT Chest 01/11/24 w/ right hemidiaphragm elevation with associated right lower lobe atelectasis/scarring. No pulmonary nodules, areas of airspace disease, pleural effusions, pericardial effusions or enlarged lymph nodes in the thorax. No
pneumothorax. Severe coronary artery calcifications
-Cardiology consulted due to elevated troponin, peak 0.656, trending down thereafter. EKG SR with RBBB, no acute ischemic changes noted. Suspect non-ischemic myocardial injury due to hypoxia, pneumonia. He did report some intermittent chest
discomfort which he describes as a jolting/stabbing pain. T/c outpatient ischemic eval once improved from a pulmonary status.
-has h/o CAD with RCA stenting in 2015 with residual LM and OM2 disease as above. Continue medical therapy w/ aspirin, plavix, statin, toprol, IMDUR
-Echo 01/08/24 with preserved EF, as above. results reviewed with patient and family at bedside 01/08.
-last stress test from 05/2023 as above
-Follow volume status closely. his weights are currently stable and not considering a diuretic at this time
-d/w nursing
HPI: Geovany is an 88 year old male with PMH of CAD w/ prior RCA PCI, HTN, HLD, chronic back pain, RBBB, prostate cancer, and hypothyroidism. He presented to [facility] due to SOB, weakness, and cough. He had reportedly been feeling unwell for a few days,
but yesterday evening, he was unable to get out of bed due to weakness, and EMS was called. In ER, he was found to be hypoxic and was placed on 4L NC. He was febrile with temp of 101.5 and also was hypotensive. Labwork revealed leukocytosis with
elevated procalcitonin. Flu and Covid negative. He was admitted with sepsis and started on IVFs and IV antibiotics. Cardiology consulted due to elevated troponin which trended upwards to 0.656. He reports no chest pain or SOB at this time.
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
Subjective
Date of Service: January 12, 2024
Objective
Labs:
01/12/24 05:20
01/12/24 05:20
Labs
Hgb 9.4 g/dL (13.0-18.0) L 01/12/24 05:20
Hct 27.5 % (39.0-52.0) L 01/12/24 05:20
Plt Count 146 10^3/uL (130-400) 01/12/24 05:20
PT 13.2 Sec (11.4-14.6) 01/08/24 01:15
INR 1.00 01/08/24 01:15
Sodium 136 mmol/L (135-145) 01/12/24 05:20
Potassium 3.7 mmol/L (3.5-5.1) 01/12/24 05:20
BUN 27 mg/dl (9-20) H 01/12/24 05:20
Creatinine 1.0 mg/dL (0.7-1.3) 01/12/24 05:20
Glucose 170 mg/dl (70-99) H 01/12/24 05:20
Vital Signs and I&O:
Vital Signs
Temp Pulse Resp BP Pulse Ox
98.6 F 81 24 145/95 95
01/12/24 03:08 01/12/24 08:05 01/12/24 08:05 01/12/24 08:05 01/12/24 08:05
Vital Signs
Temp Pulse Resp BP Pulse Ox
98.6 F 81 24 145/95 95
01/12/24 03:08 01/12/24 08:05 01/12/24 08:05 01/12/24 08:05 01/12/24 08:05
Intake & Output
01/10/24 01/11/24 01/12/2401/12/24
06:59 06:59 06:59 06:59
Intake Total 1340 / 1340 1200 / 1200 240 / 240
Output Total 580 / 580 200 / 200
Balance 760 / 760 1200 / 1200 40 / 40
[2024-01-12] MEDS: SOLU-CORTEF 25 MG IV ×2 (09:17→20:17)
[2024-01-12] MEDS: FLUSH (NSS) 1 FLUSH IV (09:19)
[2024-01-12] MEDS: PROTONIX IV 40 MG IV (09:19)
[2024-01-12] MEDS: NSS (PRESERVATIVE FREE) 10 ML IV (09:19)
[2024-01-12] MEDS: HEPARIN 5000 UNITS SC ×2 (09:20→20:16)
[2024-01-12] MEDS: MUCINEX 600 MG PO ×2 (09:22→20:17)
[2024-01-12] MEDS: SENOKOT 17.1999999999999993 MG PO ×2 (09:22→20:17)
[2024-01-12] MEDS: PLAVIX 75 MG PO (09:22)
[2024-01-12] MEDS: TOPROL XL 25 MG PO (09:22)
[2024-01-12] MEDS: VIBRAMYCIN 100 MG PO ×2 (09:22→20:17)
[2024-01-12] MEDS: IMDUR (EXTENDED RELEASE) 30 MG PO (09:22)
--- NOTE | 2024-01-12 10:25 | W.PN.HOSP.TC ---
Today's Communication/Plan
-
see bold
Assessment / Plan
Assessment / Plan
Gen: NAD, Awake and alert
Eyes: EOMI, PERRLA, no scleral icterus.
Neck: supple.
CV: RRR, +S1/S2, no m/r/g.
Resp: diffuse expiratory wheezes, mild rhonchi
Abd: +BS, soft, NT, ND
Skin: No rashes.
Neuro: CN 2-12 intact, non-focal.
Psych: Normal mood and affect.
Echo 01/08/24: EF 55-60%, mod concentric LVH, no significant valvular disease.
CXR 01/08/24: There is new elevation of the right hemidiaphragm such as may be seen with paralysis of the right hemidiaphragm
CXR 01/09/24: No acute disease of the chest. Moderate elevation of the right hemidiaphragm. Stable.
CT chest: No significant abnormality identified in the chest within the limits of unenhanced CT
Abd Xray 01/12/24: No evidence of intestinal obstruction. Mild residual oral contrast in the region of the rectum.
Sepsis, POA:
-with acute metabolic encephalopathy, POA, resolved
-leukocytosis now resolved
-U/A without evidence of infection
-CT chest unremarkable as above
-CT A/P pending (retained barium)
-currently on Doxy/Rocephin as per ID
Acute hypoxic respiratory failure:
-CXR without infiltrate
-echo above, unremarkable
-COVID/flu NEG
-was on up to 5L NC O2, now weaned to RA
-appreciate pulm. Patient may have aspiration syndrome despite negative video swallow study.
-elevation of right hemidiaphragm noted
Mild hypotension:
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
-currently on IV Hydrocortisone, wean to off today, restart home PO Prednisone tomorrow
CAD
-with elevated troponin which is nonischemic myocardial injury due to hypoxemia
-Echo: EF 55-60%, no RWMA
-h/o stenting of RCA 2014
-appreciate cardiology
-cont BB/ASA/statin/Plavix
-likely outpt ischemic eval
Other problems:
Mild hyponatremia, resolved
MARIA ESTHER, resolved with IVFs
Thrombocytopenia resolved
Prolonged QTc (532ms): Mg 2.0. K 3.7, give 20meq K.
Chronic RBBB
Essential Hypertension: Cont BB/Imdur
Hyperlipidemia: continue statin
Chronic back pain: patient has a spinal stimulator and epidural analgesic pump (chronic opioid dependence)
Arthritis: on chronic prednisone
DJD/osteoporosis
Hypothyroidism: continue Synthroid
PUD: cont PPI
h/o Prostate CA s/p prostatectomy
Allergic Asthma
Chronic ambulatory dysfunction
FULL/heparin
Total time spent on today's encounter was 50 minutes which included time spent in counseling the patient/family regarding diagnosis and treatment plan as listed above, goals of care, and symptom management. Case was discussed with nursing staff,
specialists, and care coordinators/case management. All labs and imaging personally reviewed by me. Remainder the time spent in detailed review of previous records, lab data, imaging, and other medical provider documentation.
Anticipated Discharge: 24 - 48 hours
Subjective/Interval History
-
Date of Service: January 12, 2024
Pt states 'some SOB, some CP.' States intermittent L-sided chest pain that he's had for a few years.
Objective Data
-
Labs:
Laboratory Results
01/12/24
05:20
WBC 8.3
Hgb 9.4 L
Hct 27.5 L
Plt Count 146
Sodium 136
Potassium 3.7
Chloride 98
Carbon Dioxide 29
BUN 27 H
Creatinine 1.0
Glucose 170 H
Calcium 7.8 L
Vital Signs:
Vital Signs
Temp Pulse Resp BP Pulse Ox
98.5 F 72 10 145/95 94
01/12/24 07:12 01/12/24 09:00 01/12/24 09:00 01/12/24 08:05 01/12/24 09:16
I&O
01/11/24 01/12/24 01/13/24
06:59 06:59 06:59
Intake Total 1200 / 1200 240 / 240
Output Total 200 / 200
Balance 1200 / 1200 40 / 40
--- NOTE | 2024-01-12 11:01 | W.PN.PUL3 ---
Today's Communication / Plan
-
Continue aspiration precautions
Continue nebulized therapy
Abx as per ID
Assessment
-
88-year-old male with history of cough variant asthma, hypertension, hyperlipidemia, coronary disease, presents with generalized weakness, cough. Elevated right hemidiaphragm noted on exam, treated for pneumonia. We are asked to comment on
pulmonary process
Diffuse wheezing on exam - resolved
Chronic bronchitis, productive
Subjective dyspnea, progressive x 4 to 6 weeks
Elevated right hemidiaphragm
Elevated troponin - peaked at 0.656 on 01/08/2024
Acute renal insufficiency
Suspected aspiration syndrome
Describes dysphagia as outpatient
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
Conditions present prior to admission
Mild sleep apnea, index 5
History of cough variant asthma
Mixed obstructive/restrictive lung disease
FVC 2.00/69%, FEV1 1.37/70%, ratio 68
Chronic kidney disease
Hypertension/hyperlipidemia
Hypothyroidism
Coronary disease, stent 2016
Right bundle branch block
Chronic back pain, spinal stimulator
History of prostate cancer
Plan/recommendations
At this time, patient with complex medical history
Salient features include elevated right hemidiaphragm which is new when compared to imaging in 2020, diffuse wheezing on exam, suspicion for aspiration syndrome despite negative VSE
CT chest performed yesterday showing thickened bronchioles and mucoid impaction with right hemidiahpgram elevation
Patient on Flovent as outpatient. Elevated exhaled nitric oxide noted as outpatient suggesting inflammatory airways disease
Moving forward
Chest x-ray today without any acute changes. Elevated right hemidiaphragm noted
Sputum cultures to date negative
Continue nebulized budesonide and DuoNebs
It is noted that patient is on chronic prednisone therapy for unclear reasons. Presently on hydrocortisone --> wean as tolerated back to home dose of prednisone 15mg daily
I do suspect that patient is chronically aspirating, and has aspiration syndrome
Reviewed aspiration precautions despite negative VSE
Patient is also maintained on ceftriaxone/doxycycline. ID following
Although right lower lobe pneumonia suspected, there is no opacity seen on CT chest. Short course ABx per ID
Positional therapy, head of bed elevated. Despite negative video swallowing study, aspiration remains a risk for my review
Reviewed with patient
Disposition efforts
Total time spent today was 25 minutes for this encounter. Time includes reviewing laboratory test/imaging results, reviewing pertinent medical records, obtaining and reviewing medical history, performing an appropriate exam, ordering medications,
tests and procedures. Time also includes documentation of this encounter, coordinating patient care and communicating with other healthcare professionals. Total time does not include separately billed tests performed on this date of service.
Data:
CT Chest 01-11-2024: No significant abnormality identified in the chest within the limits of unenhanced CT
Subjective Data
-
Date of Service:
Date of Service: January 12, 2024
Chief Complaint: Pulmonary Follow Up
Subjective:
Patient seen and evaluated at bedside. BP 112/59, heart rate 65. He is on room air breathing comfortably. No acute events reported overnight.
Review of Systems
General: Other (Negative unless mentioned above)
Objective Data
Data Reviewed
Vital Signs / I&O / Oxygen:
Vital Signs
Temp Pulse Resp BP Pulse Ox
98.2 F 69 13 111/65 96
01/12/24 15:13 01/12/24 15:55 01/12/24 15:55 01/12/24 13:37 01/12/24 15:55
Intake and Output
01/11/24 01/12/24 01/13/24
06:59 06:59 06:59
Intake Total 1200 / 1200 240 / 240
Output Total 200 / 200
Balance 1200 / 1200 40 / 40
SaO2 96
Nasal Cannula flow liters per 2
minute
Physical Exam
General: Comfortable
HEENT: Normocephalic and Anicteric
Cardiovascular: S1-S2, Murmur (n) and Rub (n)
Respiratory: Wheeze (n), Crackles (n), Rhonchi (n) and Non-Labored Respirations
GI: Soft, Non Distended and Non Tender
Neurology: Awake, Alert and No Motor Deficits
Skin: Cyanosis (n), Jaundice (n) and Rash (n)
Labs/Micro/Reports
Lab Data
01/12/24 05:20
01/12/24 05:20
Microbiology
01/08/24 02:32 Blood/Venous Blood Culture - Preliminary
No Growth in 4 days- Final report to follow
01/08/24 02:32 Blood/Venous Blood Culture - Preliminary
No Growth in 4 days- Final report to follow
01/08/24 09:35 Sputum Respiratory Culture - Final
Usual Respiratory Sarah
01/08/24 09:35 Sputum Gram Stain - Final
[2024-01-12] MEDS: KCL 20 MEQ PO (12:02)
--- NOTE | 2024-01-12 14:04 | W.PN.ID1 ---
Date of Service
Date of Service: January 12, 2024
Today's Communication
- switched to cefdinir doxy day
- follow up with PCP
Assessment / Plan
Fever -resolved
Sepsis - resolved
Leukocytosis - improving
MARIA ESTHER vs CKD - improving
Pain pump and spinal stimulator
- switched to cefdinir doxy day
- follow up with PCP
Chief Complaint
-: Fever and Leukocytosis
Subjective / Review of Systems
afebrile
bp stable
on 2 L NC
resolved leukocytosis
cr stable
resp culture ususal resp keila
no new complaints
Vital Signs / Physical Exam
Vital Signs
Vital Signs
Temp Pulse Resp BP Pulse Ox
98.5 F 86 26 111/65 92
01/12/24 07:12 01/12/24 13:37 01/12/24 13:37 01/12/24 13:37 01/12/24 13:35
Physical Exam
Constitutional: No Acute Distress and Chronically Ill
Cardiovascular: Regular Rate and S1/S2; Negative Murmur or Rub
Pulmonary: Clear and Symmetric; Negative Wheezes or Rales
Gastrointestinal: Soft, Non Tender, Non Distended and Normal Bowel Sounds
Skin: Warm and Dry; Negative Rash or Jaundice
Objective Data
Lab Data
Lab Results
01/12/24 05:20
01/12/24 05:20
PT 13.2 Sec (11.4-14.6) 01/08/24 01:15
INR 1.00 01/08/24 01:15
Estimated Creat Clear 39 ml/min 01/12/24 05:20
Lactic Acid 1.5 mmol/L (0.7-2.0) 01/08/24 06:43
Total Bilirubin 0.6 mg/dl (0.2-1.3) 01/08/24 05:23
AST 61 U/L (17-59) H 01/08/24 05:23
ALT 45 U/L (0-50) 01/08/24 05:23
Alkaline Phosphatase 66 U/L (38-126) 01/08/24 05:23
Most recent labs reviewed.
Micro Results:
01/08/24 02:32 Blood Culture - Preliminary
Blood/Venous No Growth in 4 days- Final report to follow
01/08/24 02:32 Blood Culture - Preliminary
Blood/Venous No Growth in 4 days- Final report to follow
01/08/24 09:35 Respiratory Culture - Final
Sputum Usual Respiratory Keila
Gram Stain - Final
01/08/24 19:38 Nasal Screen MRSA (PCR) - Final
Nose MRSA not detected - performed by PCR methodology.
01/08/24 01:15 Influenza Types A & B (FE) - Final
Nasal Swab Negative for Influenza A & B, NAAT
Negative results must be combined with clinical observations
and patient history.
Nucleic Acid Amplification test (NAAT)performed on the
[email or web address] platform.
[2024-01-12] MEDS: OMNIPAQUE 50 ML PO (14:28)
--- NOTE | 2024-01-12 15:15 | PTCARENOTE ---
Patient out of bed to chair with assistance x2. Started drinking oral contrast for prep.
[2024-01-12] MEDS: LIPITOR 80 MG PO (20:17)
[2024-01-12] MEDS: ASPIR LOW (ENTERIC COATED) 81 MG PO (20:17)
[2024-01-12] MEDS: PEPCID 20 MG PO (20:17)
[2024-01-12] MEDS: OMNICEF 300 MG PO (20:17)
[2024-01-13] VITALS (16 sets, daily range): BP systolic 113–144; BP diastolic 58–115; PULSE 74–99; BMI 27.5
--- NOTE | 2024-01-13 03:33 | PTCARENOTE ---
Received pt at start of shift. aaox3 but forgetful and got very confused at night, setting of bed alarm. pt understands he is confused. NSR BBB & prolonged QT. Remains on RA but NEELY. Neuro checks WNL. NO complaints, bed alarm on, call prasad in reach.
Will monitor.
[2024-01-13] MEDS: SYNTHROID 50 MCG PO (05:13)
[2024-01-13 06:21] LABS: NT-proBNP 11300 pg/ml
[2024-01-13] MEDS: PULMICORT 0.5 MG INH ×2 (07:35→19:49)
[2024-01-13] MEDS: DUONEB 3 ML INH ×2 (07:35→19:49)
--- NOTE | 2024-01-13 08:06 | W.PN.CARDCBS ---
Addendum entered and electronically signed by Kim Gilmore PA-C 01/13/24 15:16:
d/w daughter, Magui via telephone. all questions answered.
Addendum entered and electronically signed by Lulu Mario MD 01/13/24 09:34:
I saw and examined the patient.
The Central Supply Worker's note was reviewed and I agree with the note.
Comment: No chest pain overnight. Cardiac status fairly stable. proBNP initially greater than 13,000 now 11,000. At 1 point patient was not being diuresed given increased creatinine to 1.7, currently 1.0.
Agree with 1 dose of IV Lasix 20 mg. Continue to follow volume status.
1 short run of PAT noted. Continue to monitor telemetry.
Continue current treatment of coronary disease.
Primary service treating initial hypoxemic respiratory failure and sepsis secondary to pneumonia
Original Note:
Today's Communication / Plan
-
IV lasix 20mg x1 today
continue aspirin, Plavix, lipitor, Toprol, Imdur
plan for OP ischemic evaluation of elevated troponin
Impression / Plan
-
PCP: Dr. Echols
Cardiology: Dr. Mercado
Impression:
Presented 01/08/24 with cough, weakness
Acute hypoxic respiratory insufficiency
Sepsis due to PNA
Elevated troponin, peaked 0.629
MARIA ESTHER
CAD
h/o RCA PCI 07/23/2016
residual 80% stenosis of OM2 noted w/ 50% ostial LM stenosis 07/23/2016
HTN
HLD
Chronic dyspnea
Chronic back pain w/ epidural pain pump and spinal stimulator
RBBB
Prostate cancer
Hypothyroidism
Lexiscan stress test 06/25/2023: Perfusion imaging reveals a small area of mildly decreased perfusion that is fixed in the basal inferior segment
Echo 08/13/2023: EF 60-65%, moderate cLVH, stage II diastolic dysfunction, dense posterior MAC w/ mild to moderate MR, aortic sclerosis without stenosis, mild TR, estimated PAP 51 mmHg
Echo 01/08/2024: EF 55 to 60%, moderate concentric LVH, no significant valvular disease
Plan:
-he presented with weakness, cough, SOB and being treated for sepsis/PNA. There is concern for aspiration pneumonia
-In setting of above, had elevated troponin of 0.656 and trending down. EKG sinus rhythm with right bundle branch block without acute ischemic changes. Suspected nonischemic myocardial injury. Plan was for outpatient ischemic eval once improved
from a respiratory standpoint. He has history of CAD with prior RCA PCI in 2016 with residual left main and OM 2 disease as above. Last stress test 05/2023 with results as above
-Continue medical therapy with aspirin, Plavix, statin, Toprol, Imdur
-Echo this admission with preserved EF
-He does not examine grossly volume overloaded, however had proBNP on admission of 13,000, with repeat today 11,300. As creatinine has normalized since admission, will give dose of IV Lasix 20 mg x 1 and assess response
-He has been weaned off supplemental oxygen
-On review of telemetry overnight, remained sinus rhythm with a brief run of PAT, follow
-continue PT/OT
HPI: Geovany is an 88 year old male with PMH of CAD w/ prior RCA PCI, HTN, HLD, chronic back pain, RBBB, prostate cancer, and hypothyroidism. He presented to [facility] due to SOB, weakness, and cough. He had reportedly been feeling unwell for a few days,
but yesterday evening, he was unable to get out of bed due to weakness, and EMS was called. In ER, he was found to be hypoxic and was placed on 4L NC. He was febrile with temp of 101.5 and also was hypotensive. Labwork revealed leukocytosis with
elevated procalcitonin. Flu and Covid negative. He was admitted with sepsis and started on IVFs and IV antibiotics. Cardiology consulted due to elevated troponin which trended upwards to 0.656. He reports no chest pain or SOB at this time.
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
Subjective
Date of Service: January 13, 2024
Denies chest pain. States breathing is okay. Denies lower extremity edema or abdominal bloating
Objective
Labs:
01/12/24 05:20
01/12/24 05:20
Labs
Hgb 9.4 g/dL (13.0-18.0) L 01/12/24 05:20
Hct 27.5 % (39.0-52.0) L 01/12/24 05:20
Plt Count 146 10^3/uL (130-400) 01/12/24 05:20
PT 13.2 Sec (11.4-14.6) 01/08/24 01:15
INR 1.00 01/08/24 01:15
Sodium 136 mmol/L (135-145) 01/12/24 05:20
Potassium 3.7 mmol/L (3.5-5.1) 01/12/24 05:20
BUN 27 mg/dl (9-20) H 01/12/24 05:20
Creatinine 1.0 mg/dL (0.7-1.3) 01/12/24 05:20
Glucose 170 mg/dl (70-99) H 01/12/24 05:20
Vital Signs and I&O:
Vital Signs
Temp Pulse Resp BP Pulse Ox
98.3 F 71 18 133/70 96
01/13/24 03:30 01/13/24 07:37 01/13/24 07:37 01/13/24 06:18 01/13/24 07:37
Vital Signs
Temp Pulse Resp BP Pulse Ox
98.3 F 71 18 133/70 96
01/13/24 03:30 01/13/24 07:37 01/13/24 07:37 01/13/24 06:18 01/13/24 07:37
Intake & Output
01/11/24 01/12/24 01/13/24 01/14/24
07:59 07:59 07:59 07:59
Intake Total 1200 / 1200 240 / 240 1300 / 1300
Output Total 200 / 200 630 / 630
Balance 1200 / 1200 40 / 40 670 / 670
Physical Exam
Physical Exam
GEN: No distress, awake, alert, oriented x3.
HEENT: supple, anicteric, mmm, eomi
LUNGS: coarse BS B/L with mild exp wheezes
CV: Reg, S1/S2, no murmur
ABD: soft, BS+, NT/ND
EXT: No cyanosis, clubbing, edema
NEURO: Gross non-focal
SKIN: Warm, pink, dry. No rash
--- NOTE | 2024-01-13 08:44 | W.PN.HOSP.TC ---
Today's Communication/Plan
-
see bold. Start discharge planning.
Assessment / Plan
Assessment / Plan
Gen: NAD, Awake and alert
Eyes: EOMI, PERRLA, no scleral icterus.
Neck: supple.
CV: remains RRR, +S1/S2, no m/r/g.
Resp: CTAB anteriorly
Abd: remains +BS, soft, NT, ND
Skin: No rashes.
Neuro: CN 2-12 intact, non-focal.
Psych: Normal mood and affect.
01/08/24 02:32 Blood/Venous Blood Culture - Final
No Growth - Final Report
01/08/24 02:32 Blood/Venous Blood Culture - Final
No Growth - Final Report
01/08/24 09:35 Sputum Respiratory Culture - Final
Usual Respiratory Sarah
01/08/24 09:35 Sputum Gram Stain - Final
01/08/24 19:38 Nose Nasal Screen MRSA (PCR) - Final
MRSA not detected - performed by PCR methodology.
01/08/24 01:15 Nasal Swab Influenza Types A & B (FE) - Final
Negative for Influenza A & B, NAAT
Negative results must be combined with clinical observations
and patient history.
Nucleic Acid Amplification test (NAAT)performed on the
[employer] platform.
Echo 01/08/24: EF 55-60%, mod concentric LVH, no significant valvular disease.
CXR 01/08/24: There is new elevation of the right hemidiaphragm such as may be seen with paralysis of the right hemidiaphragm
CXR 01/09/24: No acute disease of the chest. Moderate elevation of the right hemidiaphragm. Stable.
CT chest: No significant abnormality identified in the chest within the limits of unenhanced CT
CT A/P:
1. Moderate distention of the proximal colon with air and contrast material suspicious for a mild colonic ileus.
2. 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
3. Mild chronic bilateral renal disease.
4. Severe calcific atherosclerotic plaque in the aorta.
5. Minimal peritoneal fluid in the pelvis.
6. Severe calcific atherosclerotic plaque in the coronary arteries.
7. Cholelithiasis.
8. Moderate elevation of the right hemidiaphragm.
9. 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 Previous laminectomies and bilateral posterior instrumentation/fusion at L4/L5. Spinal stimulator wire and spinal pain pump extending into the thoracic spinal canal.
Abd Xray 01/12/24: No evidence of intestinal obstruction. Mild residual oral contrast in the region of the rectum.
SIRS, POA, likely due to aspiration pneumonitis:
-with acute metabolic encephalopathy, POA, resolved
-note, sepsis has been ruled out as no definitive source of infection has been found. Sepsis-like picture was due to SIRS due to aspiration pneumonitis.
-leukocytosis now resolved
-U/A without evidence of infection
-CT chest unremarkable as above
-CT A/P without evidence of infection
-was on Doxy/Rocephin, now transitioned to cefdinir/Doxy to complete 7 days of antibiotic therapy as per ID
Acute hypoxic respiratory failure:
-CXR without infiltrate
-echo above, unremarkable
-COVID/flu NEG
-was on up to 5L NC O2, now weaned to RA
-appreciate pulm. Patient may have aspiration syndrome despite negative video swallow study.
-elevation of right hemidiaphragm noted
Mild hypotension:
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
-was on IV Hydrocortisone which was weaned to off on 01/12/24, now back on home PO Prednisone
CAD
-with elevated troponin which is nonischemic myocardial injury due to hypoxemia
-Echo: EF 55-60%, no RWMA
-h/o stenting of RCA 2014
-appreciate cardiology
-cont BB/ASA/statin/Plavix
-likely outpt ischemic eval
Other problems:
Mild hyponatremia, resolved
MARIA ESTHER, resolved with IVFs
Thrombocytopenia resolved
Prolonged QTc: now 520ms, improved from yesterday
Chronic RBBB
Essential Hypertension: Cont BB/Imdur
Hyperlipidemia: continue statin
Chronic back pain: patient has a spinal stimulator and epidural analgesic pump (chronic opioid dependence)
Arthritis: on chronic prednisone
DJD/osteoporosis
Hypothyroidism: continue Synthroid
PUD: cont PPI
h/o Prostate CA s/p prostatectomy
Allergic Asthma
Chronic ambulatory dysfunction
FULL/heparin
Transfer to tele.
Family updated at bedside. Many questions were asked and answered.
Total time spent on today's encounter was 52 minutes which included time spent in counseling the patient/family regarding diagnosis and treatment plan as listed above, goals of care, and symptom management. Case was discussed with nursing staff,
specialists, and care coordinators/case management. All labs and imaging personally reviewed by me. Remainder the time spent in detailed review of previous records, lab data, imaging, and other medical provider documentation.
Anticipated Discharge: 24 - 48 hours
Subjective/Interval History
-
Date of Service: January 13, 2024
Pt without new complaints today.
Objective Data
-
Vital Signs:
Vital Signs
Temp Pulse Resp BP Pulse Ox
98.6 F 71 18 133/70 96
01/13/24 07:17 01/13/24 07:37 01/13/24 07:37 01/13/24 06:18 01/13/24 07:37
I&O
01/12/24 01/13/24 01/14/24
06:59 06:59 06:59
Intake Total 240 / 240 1300 / 1300
Output Total 200 / 200 630 / 630
Balance 40 / 40 670 / 670
[2024-01-13] MEDS: TOPROL XL 25 MG PO (08:53)
[2024-01-13] MEDS: DELTASONE 15 MG PO (08:53)
[2024-01-13] MEDS: OMNICEF 300 MG PO (08:54)
[2024-01-13] MEDS: PROTONIX 40 MG PO (08:54)
[2024-01-13] MEDS: MUCINEX 600 MG PO ×2 (08:54→19:34)
[2024-01-13] MEDS: VIBRAMYCIN 100 MG PO ×2 (08:54→19:34)
[2024-01-13] MEDS: HEPARIN 5000 UNITS SC ×2 (08:54→19:34)
[2024-01-13] MEDS: IMDUR (EXTENDED RELEASE) 30 MG PO (08:54)
[2024-01-13] MEDS: PLAVIX 75 MG PO (08:55)
[2024-01-13] MEDS: SENOKOT PO (08:56)
--- NOTE | 2024-01-13 09:07 | W.PN.PUL3 ---
Today's Communication / Plan
-
Continue aspiration precautions
Continue nebulized therapy
Abx as per ID - would recommend to stop ABx
Pulmonary will continue to briefly follow and will arrange for outpatient office follow up with Dr. Leblanc
Assessment
-
88-year-old male with history of cough variant asthma, hypertension, hyperlipidemia, coronary disease, presents with generalized weakness, cough. Elevated right hemidiaphragm noted on exam, treated for pneumonia. We were asked to comment on
pulmonary process
Impression:
Diffuse wheezing on exam - resolved
Chronic bronchitis, productive
Subjective dyspnea, progressive x 4 to 6 weeks
Elevated right hemidiaphragm
Elevated troponin - peaked at 0.656 on 01/08/2024
Acute renal insufficiency
Suspected aspiration syndrome
Describes dysphagia as outpatient
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
Conditions present prior to admission
Mild sleep apnea, index 5
History of cough variant asthma
Mixed obstructive/restrictive lung disease
FVC 2.00/69%, FEV1 1.37/70%, ratio 68
Chronic kidney disease
Hypertension/hyperlipidemia
Hypothyroidism
Coronary disease, stent 2015
Right bundle branch block
Chronic back pain, spinal stimulator
History of prostate cancer
Plan/recommendations
At this time, patient with complex medical history
Salient features include elevated right hemidiaphragm which is new when compared to imaging in 2019, diffuse wheezing on exam, suspicion for aspiration syndrome despite negative VSE
CT chest performed on 01/11/2024 showed thickened bronchioles and mucoid impaction with right hemidiaphragm elevation
Patient on Flovent as outpatient. Elevated exhaled nitric oxide noted as outpatient suggesting inflammatory airways disease
Moving forward
Chest x-ray on 01/11/2024 without any acute changes. Elevated right hemidiaphragm noted
Sputum cultures to date negative
Continue nebulized budesonide and DuoNebs --> will lower frequency of DuoNebs from QID to BID, as pt not feeling benefit with QID dosing and I feel BID is sufficient
It is noted that patient is on chronic prednisone therapy for unclear reasons. Today would transition from hydrocortisone back to home dose of prednisone 15mg daily
Mucinex
Per Dr. Montenegro: I do suspect that patient is chronically aspirating, and has aspiration syndrome
Reviewed aspiration precautions despite negative VSE
Patient is also maintained on Abx --> currently on cefdnir + doxy s/p rocephin 01/08- 01/10; s/p cefepime x2 days; s/p zosyn x1 dose, and s/p IV vanco x2 doses - ID following
Although right lower lobe pneumonia suspected, there is no opacity seen on CT chest. Short course ABx per ID - would stop Abx
Positional therapy, head of bed elevated. Despite negative video swallowing study, aspiration remains a risk for my review
Reviewed with patient
Disposition efforts
Of note, patient follows with us at [facility] with Dr. Leblanc - next appt is 02/17/2024 at 9AM
Total time spent today was 25 minutes for this encounter. Time includes reviewing laboratory test/imaging results, reviewing pertinent medical records, obtaining and reviewing medical history, performing an appropriate exam, ordering medications,
tests and procedures. Time also includes documentation of this encounter, coordinating patient care and communicating with other healthcare professionals. Total time does not include separately billed tests performed on this date of service.
Data:
CT Chest 01-11-2024: No significant abnormality identified in the chest within the limits of unenhanced CT
CXR 01-11-2024: Stable bibasilar probable atelectasis.
Subjective Data
-
Date of Service:
Date of Service: January 13, 2024
Chief Complaint: Pulmonary Follow Up
Subjective:
Patient seen today. No acute events reported overnight. Feels well, currently no complaints.
Review of Systems
General: Other (Negative unless mentioned above)
Objective Data
Data Reviewed
Vital Signs / I&O / Oxygen:
Vital Signs
Temp Pulse Resp BP Pulse Ox
98.6 F 75 14 135/61 96
01/13/24 07:17 01/13/24 08:00 01/13/24 08:00 01/13/24 08:00 01/13/24 08:46
Intake and Output
01/12/24 01/13/24 01/14/24
06:59 06:59 06:59
Intake Total 240 / 240 1300 / 1300 340 / 340
Output Total 200 / 200 630 / 630 210 / 210
Balance 40 / 40 670 / 670 130 / 130
SaO2 96
Nasal Cannula flow liters per 2
minute
Physical Exam
General: Comfortable
HEENT: Normocephalic and Anicteric
Cardiovascular: S1-S2, Murmur (n) and Rub (n)
Respiratory: Wheeze (n), Crackles (n), Rhonchi (n) and Non-Labored Respirations
GI: Soft, Non Distended and Non Tender
Neurology: Awake, Alert and No Motor Deficits
Skin: Cyanosis (n), Jaundice (n) and Rash (n)
Labs/Micro/Reports
Lab Data
01/13/24 09:34
01/13/24 09:34
Microbiology
01/08/24 02:32 Blood/Venous Blood Culture - Final
No Growth - Final Report
01/08/24 02:32 Blood/Venous Blood Culture - Final
No Growth - Final Report
01/08/24 09:35 Sputum Respiratory Culture - Final
Usual Respiratory Sarah
01/08/24 09:35 Sputum Gram Stain - Final
[2024-01-13] MEDS: LASIX 20 MG IV (09:22)
[2024-01-13] MEDS: CALCIUM GLUCONATE 100 IV (09:23)
[2024-01-13] MEDS: FLUSH (NSS) 1 FLUSH IV (09:24)
[2024-01-13 09:48] LABS: Hematocrit 29.1 % (39.0-52.0); Hemoglobin 9.7 g/dL (13.0-18.0); Mean Corp Hgb Conc. 33.3 g/dL (33.0-37.0); Mean Corpuscular Hgb 29.7 pg (27.0-31.0); Mean Platelet Volume 11.1 fL (7.4-10.4); Platelet Count 185 10^3/uL (130-400); Red Blood Cell Count 3.27 10^6/uL (4.70-6.10); Red Cell Dist. Width 15.2 % (11.5-14.5); White Blood Cell Count 9.4 10^3/uL (4.8-10.8)
--- NOTE | 2024-01-13 10:00 | W.PN.ID1 ---
Date of Service
Date of Service: January 13, 2024
Today's Communication
- CT without evidence of pneumonia
- completed adequate course of antibiotics - stopped
- follow up with PCP
Assessment / Plan
Fever -resolved
Sepsis - likely due to aspiration pneumonitis
Leukocytosis - improving
MARIA ESTHER vs CKD - improving
Pain pump and spinal stimulator
- CT without evidence of pneumonia
- completed adequate course of antibiotics - stopped
- follow up with PCP
Chief Complaint
-: Fever and Leukocytosis
Subjective / Review of Systems
afebrile
bp stable
without leukocytosis
cr stable
having some exacerbation of chronic right knee pain
dispo planning
Vital Signs / Physical Exam
Vital Signs
Vital Signs
Temp Pulse Resp BP Pulse Ox
98.6 F 75 14 135/61 96
01/13/24 07:17 01/13/24 08:00 01/13/24 08:00 01/13/24 08:00 01/13/24 08:46
Physical Exam
Constitutional: No Acute Distress
Cardiovascular: Regular Rate and S1/S2; Negative Murmur or Rub
Pulmonary: Clear and Symmetric; Negative Wheezes or Rales
Gastrointestinal: Soft, Non Tender, Non Distended and Normal Bowel Sounds
Skin: Warm and Dry; Negative Rash or Jaundice
Objective Data
Lab Data
Lab Results
01/13/24 09:34
PT 13.2 Sec (11.4-14.6) 01/08/24 01:15
INR 1.00 01/08/24 01:15
Estimated Creat Clear 39 ml/min 01/12/24 05:20
Lactic Acid 1.5 mmol/L (0.7-2.0) 01/08/24 06:43
Total Bilirubin 0.6 mg/dl (0.2-1.3) 01/08/24 05:23
AST 61 U/L (17-59) H 01/08/24 05:23
ALT 45 U/L (0-50) 01/08/24 05:23
Alkaline Phosphatase 66 U/L (38-126) 01/08/24 05:23
Most recent labs reviewed.
Micro Results:
01/08/24 02:32 Blood Culture - Final
Blood/Venous No Growth - Final Report
01/08/24 02:32 Blood Culture - Final
Blood/Venous No Growth - Final Report
01/08/24 09:35 Respiratory Culture - Final
Sputum Usual Respiratory Sarah
Gram Stain - Final
01/08/24 19:38 Nasal Screen MRSA (PCR) - Final
Nose MRSA not detected - performed by PCR methodology.
01/08/24 01:15 Influenza Types A & B (FE) - Final
Nasal Swab Negative for Influenza A & B, NAAT
Negative results must be combined with clinical observations
and patient history.
Nucleic Acid Amplification test (NAAT)performed on the
[employer] platform.
Care Review
Plan reviewed with: Physician (Dr Martinez - CT findings)
[2024-01-13 10:02] LABS: Blood Urea Nitrogen 21 mg/dl (9-20); Calcium 7.6 mg/dl (8.4-10.2); Carbon Dioxide 29 mmol/L (22-30); Chloride 101 mmol/L (98-107); Estimated Creatinine Clearance 39 ml/min; Glucose 115 mg/dl (70-99); Potassium 3.6 mmol/L (3.5-5.1); Sodium 133 mmol/L (135-145); eGFR > 60.00
--- NOTE | 2024-01-13 15:45 | PTCARENOTE ---
Report given to Rochelle LYNN. Patient transferred to 4th floor room 417 bed2 by transport. All belongings with the patient.
--- NOTE | 2024-01-13 15:45 | PTCARENOTE ---
01/12- Patient transferred and oriented to unit without issue. AAOX3 but forgetful; Able to walk from hallway to bed with walker with 1person assist. Gait is hunched, slow but steady. Skin generalized ecchymosis. Telemetry #29, currently NSR.
Patient currently denies any complaints or needs.
--- NOTE | 2024-01-13 17:17 | CM ---
Patient with Dx SIRS, POA, likely due to aspiration pneumonitis, Acute hypoxic respiratory failure. Room air. PT & OT recommend skilled rehab.
Spoke with Karlee, patient's ; discussed PT/OT recommendations. Karlee says patient will agree to going to SNF for rehab. Patient may possibly want to go to [facility] again however is asking for CM to talk with both of them together
tomorrow re; SNF preferences. is at home today with respiratory infection.
Plan speak with patient & tomorrow about SNF preferences.
[2024-01-13] MEDS: SENOKOT 17.1999999999999993 MG PO (19:34)
[2024-01-13] MEDS: PEPCID 20 MG PO (19:35)
[2024-01-13] MEDS: LIPITOR 80 MG PO (19:35)
[2024-01-13] MEDS: ASPIR LOW (ENTERIC COATED) 81 MG PO (19:35)
[2024-01-14] VITALS (7 sets, daily range): BP systolic 111–138; BP diastolic 59–81; PULSE 81–92; BMI 27.2
--- NOTE | 2024-01-14 04:54 | DOWNTIME ---
There was a [employer] Downtime on 01/14/2024 from 0100 to 01/14/2024 at 0439. Downtime documentation of patient's care, including medication administrations, has been reconciled in the electronic record per guidelines. Refer to the
patient's paper chart under the miscellaneous tab to see printed paper medication records and downtime forms.
[2024-01-14] MEDS: SYNTHROID 50 MCG PO (05:41)
--- NOTE | 2024-01-14 07:47 | W.PN.PUL3 ---
Today's Communication / Plan
-
Aspiration precautions
Continue nebulized therapy
Abx as per ID - would stop ABx
Outpatient appt will be arranged with [facility] via Dr. Leblanc
Pulmonary service will now sign off. Please reconsult if there are any additional questions/concerns, or if patient's respiratory status deteriorates.
Assessment
-
88-year-old male with history of cough variant asthma, hypertension, hyperlipidemia, coronary disease, presents with generalized weakness, cough. Elevated right hemidiaphragm noted on exam, treated for pneumonia. We were asked to comment on
pulmonary process
Impression:
Diffuse wheezing on exam - resolved
Chronic bronchitis, productive
Subjective dyspnea, progressive x 4 to 6 weeks
Elevated right hemidiaphragm
Elevated troponin - peaked at 0.656 on 01/08/2024
Acute renal insufficiency
Suspected aspiration syndrome
Describes dysphagia as outpatient
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
Conditions present prior to admission
Mild sleep apnea, index 5
History of cough variant asthma
Mixed obstructive/restrictive lung disease
FVC 2.00/69%, FEV1 1.37/70%, ratio 68
Chronic kidney disease
Hypertension/hyperlipidemia
Hypothyroidism
Coronary disease, stent 2015
Right bundle branch block
Chronic back pain, spinal stimulator
History of prostate cancer
Plan/recommendations
At this time, patient with complex medical history
Salient features include elevated right hemidiaphragm which is new when compared to imaging in 2020, diffuse wheezing on exam, suspicion for aspiration syndrome despite negative VSE
CT chest performed on 01/11/2024 showed thickened bronchioles and mucoid impaction with right hemidiaphragm elevation
Patient on Flovent as outpatient. Elevated exhaled nitric oxide noted as outpatient suggesting inflammatory airways disease
Moving forward
Chest x-ray on 01/11/2024 without any acute changes. Elevated right hemidiaphragm noted
Sputum cultures to date negative
Continue nebulized budesonide and DuoNebs --> continue DuoNebs BID (reduced from QID as pt not feeling benefit with QID dosing)
It is noted that patient is on chronic prednisone therapy for unclear reasons. Today would transition from hydrocortisone back to home dose of prednisone 15mg daily
Mucinex
Per Dr. Montenegro: I do suspect that patient is chronically aspirating, and has aspiration syndrome
Reviewed aspiration precautions despite negative VSE
Patient is also maintained on Abx --> currently on cefdnir + doxy s/p rocephin 01/08- 01/10; s/p cefepime x2 days; s/p zosyn x1 dose, and s/p IV vanco x2 doses - ID following
Although right lower lobe pneumonia suspected, there is no opacity seen on CT chest. Short course ABx per ID - would stop Abx
Positional therapy, head of bed elevated. Despite negative video swallowing study, aspiration remains a risk
Reviewed with patient
Disposition efforts --> PT recommending skilled rehab
Of note, patient follows with us at [facility] with Dr. Leblanc - next appt is 02/17/2024 at 9AM --> I will try to get this appt moved up sooner.
Pulmonary service will now sign off. Thank you for allowing us to be involved in the care of this patient. Please reconsult if there are any additional questions/concerns, or if patient's respiratory status deteriorates.
Total time spent today was 25 minutes for this encounter. Time includes reviewing laboratory test/imaging results, reviewing pertinent medical records, obtaining and reviewing medical history, performing an appropriate exam, ordering medications,
tests and procedures. Time also includes documentation of this encounter, coordinating patient care and communicating with other healthcare professionals. Total time does not include separately billed tests performed on this date of service.
Data:
CT Chest 01-11-2024: No significant abnormality identified in the chest within the limits of unenhanced CT
CXR 01-11-2024: Stable bibasilar probable atelectasis.
Subjective Data
-
Date of Service:
Date of Service: January 14, 2024
Chief Complaint: Pulmonary Follow Up
Subjective:
Patient seen at bedside. 2 sons and [id number] are at bedside as well, and all questions were answered. Patient using incentive spirometer and flutter valve. He feels okay today, and he is on room air breathing comfortably. No acute events
reported from overnight.
Review of Systems
General: Other (Negative unless mentioned above)
Objective Data
Data Reviewed
Vital Signs / I&O / Oxygen:
Vital Signs
Temp Pulse Resp BP Pulse Ox
98.4 F 84 18 125/59 96
01/14/24 03:30 01/14/24 03:30 01/14/24 03:30 01/14/24 03:30 01/14/24 03:30
Intake and Output
01/13/24 01/14/24 01/15/24
06:59 06:59 06:59
Intake Total 1300 / 1300 1760 / 1760
Output Total 630 / 630 660 / 660
Balance 670 / 670 1100 / 1100
SaO2 96
Nasal Cannula flow liters per 2
minute
Physical Exam
General: Comfortable
HEENT: Normocephalic and Anicteric
Cardiovascular: S1-S2, Murmur (n) and Rub (n)
Respiratory: Wheeze (n), Crackles (Bibasilar), Rhonchi (n) and Non-Labored Respirations
GI: Soft, Non Distended and Non Tender
Neurology: Awake, Alert and No Motor Deficits
Skin: Cyanosis (n), Jaundice (n) and Rash (n)
Labs/Micro/Reports
Microbiology
01/08/24 02:32 Blood/Venous Blood Culture - Final
No Growth - Final Report
01/08/24 02:32 Blood/Venous Blood Culture - Final
No Growth - Final Report
[2024-01-14] MEDS: DELTASONE 15 MG PO (07:54)
[2024-01-14] MEDS: PROTONIX 40 MG PO (07:54)
[2024-01-14] MEDS: VIBRAMYCIN 100 MG PO ×2 (07:54→19:52)
[2024-01-14] MEDS: SENOKOT 17.1999999999999993 MG PO ×2 (07:54→19:52)
[2024-01-14] MEDS: TOPROL XL 25 MG PO (07:55)
[2024-01-14] MEDS: MUCINEX 600 MG PO ×2 (07:55→19:52)
[2024-01-14] MEDS: PLAVIX 75 MG PO (07:55)
[2024-01-14] MEDS: HEPARIN 5000 UNITS SC ×2 (07:56→19:52)
[2024-01-14] MEDS: IMDUR (EXTENDED RELEASE) 30 MG PO (07:56)
[2024-01-14] MEDS: DUONEB 3 ML INH ×2 (08:01→20:03)
[2024-01-14] MEDS: PULMICORT 0.5 MG INH ×2 (08:01→20:03)
--- NOTE | 2024-01-14 08:24 | W.PN.HOSP.TC ---
Addendum entered and electronically signed by Luis Martinez MD 01/14/24 10:36:
hypocalcemia
Original Note:
Today's Communication/Plan
-
d/c
Assessment / Plan
Assessment / Plan
Gen: NAD, Awake and alert
Eyes: EOMI, PERRLA, no scleral icterus.
Neck: supple.
CV: continues to remain RRR, +S1/S2, no m/r/g.
Resp: end expiratory wheezes
Abd: continues to remain +BS, soft, NT, ND
Skin: No rashes.
Neuro: CN 2-12 intact, non-focal.
Psych: Normal mood and affect.
01/08/24 02:32 Blood/Venous Blood Culture - Final
No Growth - Final Report
01/08/24 02:32 Blood/Venous Blood Culture - Final
No Growth - Final Report
01/08/24 09:35 Sputum Respiratory Culture - Final
Usual Respiratory Sarah
01/08/24 09:35 Sputum Gram Stain - Final
01/08/24 19:38 Nose Nasal Screen MRSA (PCR) - Final
MRSA not detected - performed by PCR methodology.
01/08/24 01:15 Nasal Swab Influenza Types A & B (FE) - Final
Negative for Influenza A & B, NAAT
Negative results must be combined with clinical observations
and patient history.
Nucleic Acid Amplification test (NAAT)performed on the
[employer] platform.
Echo 01/08/24: EF 55-60%, mod concentric LVH, no significant valvular disease.
CXR 01/08/24: There is new elevation of the right hemidiaphragm such as may be seen with paralysis of the right hemidiaphragm
CXR 01/09/24: No acute disease of the chest. Moderate elevation of the right hemidiaphragm. Stable.
CT chest: No significant abnormality identified in the chest within the limits of unenhanced CT
CT A/P:
1. Moderate distention of the proximal colon with air and contrast material suspicious for a mild colonic ileus.
2. 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
3. Mild chronic bilateral renal disease.
4. Severe calcific atherosclerotic plaque in the aorta.
5. Minimal peritoneal fluid in the pelvis.
6. Severe calcific atherosclerotic plaque in the coronary arteries.
7. Cholelithiasis.
8. Moderate elevation of the right hemidiaphragm.
9. 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 Previous laminectomies and bilateral posterior instrumentation/fusion at L4/L5. Spinal stimulator wire and spinal pain pump extending into the thoracic spinal canal.
Abd Xray 01/12/24: No evidence of intestinal obstruction. Mild residual oral contrast in the region of the rectum.
SIRS, POA, likely due to aspiration pneumonitis:
-with acute metabolic encephalopathy, POA, resolved
-note, sepsis has been ruled out as no definitive source of infection has been found. Sepsis-like picture was due to SIRS due to aspiration pneumonitis.
-leukocytosis now resolved
-U/A without evidence of infection
-CT chest unremarkable as above
-CT A/P without evidence of infection
-was on Doxy/Rocephin, then transitioned to cefdinir/Doxy and has completed antibiotic therapy as per ID
Acute hypoxic respiratory failure:
-CXR without infiltrate
-echo above, unremarkable
-COVID/flu NEG
-was on up to 5L NC O2, now weaned to RA
-appreciate pulm. Patient may have aspiration syndrome despite negative video swallow study.
-elevation of right hemidiaphragm noted
Mild hypotension:
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
-was on IV Hydrocortisone which was weaned to off on 01/12/24, now back on home PO Prednisone
CAD
-with elevated troponin which is nonischemic myocardial injury due to hypoxemia
-Echo: EF 55-60%, no RWMA
-h/o stenting of RCA 2014
-cardiology following
-cont BB/ASA/statin/Plavix
-likely outpt ischemic eval
Other problems:
Mild hyponatremia, resolved
MARIA ESTHER, resolved with IVFs
Thrombocytopenia resolved
Prolonged QTc: cardiology following
Chronic RBBB
Essential Hypertension: Cont BB/Imdur
Hyperlipidemia: continue statin
Chronic back pain: patient has a spinal stimulator and epidural analgesic pump (chronic opioid dependence)
Arthritis: on chronic prednisone
DJD/osteoporosis
Hypothyroidism: continue Synthroid
PUD: cont PPI
h/o Prostate CA s/p prostatectomy
Allergic Asthma
Chronic ambulatory dysfunction
FULL/heparin
Medically cleared for d/c. Case management aware.
Anticipated Discharge: Today
Subjective/Interval History
-
Date of Service: January 14, 2024
Denies CP/SOB/abd pain.
Objective Data
-
Labs:
Laboratory Results
01/14/24
06:00
WBC Pending
Hgb Pending
Hct Pending
Plt Count Pending
Sodium Pending
Potassium Pending
Chloride Pending
Carbon Dioxide Pending
BUN Pending
Creatinine Pending
Glucose Pending
Calcium Pending
Vital Signs:
Vital Signs
Temp Pulse Resp BP Pulse Ox
98.4 F 77 18 125/59 97
01/14/24 03:30 01/14/24 08:06 01/14/24 08:06 01/14/24 03:30 01/14/24 08:06
I&O
01/13/24 01/14/24 01/15/24
06:59 06:59 06:59
Intake Total 1300 / 1300 1760 / 1760
Output Total 630 / 630 660 / 660
Balance 670 / 670 1100 / 1100
--- NOTE | 2024-01-14 09:55 | PN.CDI ---
CDI
- -
CDI:
Physician Documentation Request
Admit Date: 01/08/24 04:51
Dear Doctor Juan,
Please review the following and provide your response in the progress notes.
Clinical Indicators:
- 01/12 IV Calcium Gluconate given
Laboratory Tests
01/09/24 01/10/24 01/11/24
13:54 04:22 11:47
Calcium 8.1 L 8.0 L 7.4 L
01/12/24 01/13/24
05:20 09:34
Calcium 7.8 L 7.6 L
Please provide a diagnosis for the above lab values that were monitored and treatment rendered:
Hypocalcemia
Clinically insignificant abnormal lab value
Other
Use of terms such as suspected, likely, concern for, or probable (associated with a specific diagnosis that is being evaluated, monitored, or treated as if it exists) are acceptable and can be coded in the inpatient setting, when documented at the
time of discharge.
Thank you,
Ida Palafox RN
CDI Specialist
Please use your independent medical judgment in providing your response.
[2024-01-14 10:20] LABS: Hematocrit 27.5 % (39.0-52.0); Hemoglobin 9.5 g/dL (13.0-18.0); Mean Corp Hgb Conc. 34.5 g/dL (33.0-37.0); Mean Corpuscular Hgb 29.8 pg (27.0-31.0); Mean Corpuscular Volume 86.2 fL (80.0-94.0); Mean Platelet Volume 10.6 fL (7.4-10.4); Platelet Count 190 10^3/uL (130-400); Red Blood Cell Count 3.19 10^6/uL (4.70-6.10); Red Cell Dist. Width 14.9 % (11.5-14.5); White Blood Cell Count 10.8 10^3/uL (4.8-10.8)
[2024-01-14 10:42] LABS: Blood Urea Nitrogen 23 mg/dl (9-20); Calcium 7.9 mg/dl (8.4-10.2); Carbon Dioxide 28 mmol/L (22-30); Chloride 102 mmol/L (98-107); Estimated Creatinine Clearance 44 ml/min; Glucose 146 mg/dl (70-99); Potassium 3.6 mmol/L (3.5-5.1); Sodium 133 mmol/L (135-145); eGFR > 60.00
--- NOTE | 2024-01-14 11:18 | W.PN.CARDCBS ---
Today's Communication / Plan
-
Stable cardiology status for discharge off of oral diuretics
Consider outpatient stress testing
Will sign off
Follow-up arranged
Impression / Plan
-
PCP: Dr. Echols
Cardiology: Dr. Mercado
Impression:
Presented 01/08/24 with cough, weakness
Acute hypoxic respiratory insufficiency
Sepsis due to PNA
Nonischemic myocardial injury with troponin peak of 0.629
CAD
h/o RCA PCI 07/23/2016
residual 80% stenosis of OM2 noted w/ 50% ostial LM stenosis 07/23/2016
HTN
HLD
Chronic dyspnea
Chronic back pain w/ epidural pain pump and spinal stimulator
RBBB
Prostate cancer
Hypothyroidism
Lexiscan stress test 06/25/2023: Perfusion imaging reveals a small area of mildly decreased perfusion that is fixed in the basal inferior segment
Echo 08/13/2023: EF 60-65%, moderate cLVH, stage II diastolic dysfunction, dense posterior MAC w/ mild to moderate MR, aortic sclerosis without stenosis, mild TR, estimated PAP 51 mmHg
Echo 01/08/2024: EF 55 to 60%, moderate concentric LVH, no significant valvular disease
Plan:
He seems much improved
Stable cardiology status for discharge possibly to rehab
Volume status appears reasonable although did get dose of IV Lasix on 01/12. Will follow off of diuretic. He is on room air and not hypoxic
Suspected nonischemic myocardial injury. Plan was for outpatient ischemic eval once improved from a respiratory standpoint. He has history of CAD with prior RCA PCI in 2016 with residual left main and OM 2 disease as above.
Discussed with daughter at bedside who request to speak to case management
HPI: Geovany is an 88 year old male with PMH of CAD w/ prior RCA PCI, HTN, HLD, chronic back pain, RBBB, prostate cancer, and hypothyroidism. He presented to [facility] due to SOB, weakness, and cough. He had reportedly been feeling unwell for a few days,
but yesterday evening, he was unable to get out of bed due to weakness, and EMS was called. In ER, he was found to be hypoxic and was placed on 4L NC. He was febrile with temp of 101.5 and also was hypotensive. Labwork revealed leukocytosis with
elevated procalcitonin. Flu and Covid negative. He was admitted with sepsis and started on IVFs and IV antibiotics. Cardiology consulted due to elevated troponin which trended upwards to 0.656. He reports no chest pain or SOB at this time.
Progress Note - Scroll Saw Operator
Subjective
Date of Service: January 14, 2024
No complaints
Objective
Labs:
01/14/24 09:25
01/14/24 09:25
Labs
Hgb 9.5 g/dL (13.0-18.0) L 01/14/24 09:25
Hct 27.5 % (39.0-52.0) L 01/14/24 09:25
Plt Count 190 10^3/uL (130-400) 01/14/24 09:25
PT 13.2 Sec (11.4-14.6) 01/08/24 01:15
INR 1.00 01/08/24 01:15
Sodium 133 mmol/L (135-145) L 01/14/24 09:25
Potassium 3.6 mmol/L (3.5-5.1) 01/14/24 09:25
BUN 23 mg/dl (9-20) H 01/14/24 09:25
Creatinine 0.9 mg/dL (0.7-1.3) 01/14/24 09:25
Glucose 146 mg/dl (70-99) H 01/14/24 09:25
Vital Signs and I&O:
Vital Signs
Temp Pulse Resp BP Pulse Ox
98.2 F 77 18 128/61 97
01/14/24 07:55 01/14/24 08:06 01/14/24 08:06 01/14/24 07:55 01/14/24 08:06
Vital Signs
Temp Pulse Resp BP Pulse Ox
98.2 F 77 18 128/61 97
01/14/24 07:55 01/14/24 08:06 01/14/24 08:06 01/14/24 07:55 01/14/24 08:06
Intake & Output
01/12/24 01/13/24 01/14/24 01/15/24
06:59 06:59 06:59 06:59
Intake Total 240 / 240 1300 / 1300 1760 / 1760
Output Total 200 / 200 630 / 630 660 / 660
Balance 40 / 40 670 / 670 1100 / 1100
Physical Exam
Physical Exam
General: Well developed, well nourished in NAD.
Neck: Supple, no JVD, HJR, carotids +2 B/L, no bruits bilaterally.
Heart: Non displaced PMI, RRR, no murmurs, No S3, S4, no rubs.
Lungs: Scattered rhonchi
Extremities: No clubbing, cyanosis or edema bilaterally.
Neuro: Grossly nonfocal, awake, alert and oriented x3.
--- NOTE | 2024-01-14 13:27 | CM ---
Patient seen with daughter, Magui, provided list of local SNFs that accept patients insurance. Patient and daughter requesting [facility]. Referrals sent in [facility], patient will require authorization once bed is found at
accepting facility. CM will continue to follow for discharge planning needs.
Plan; SNF pending accepting facility, will need auth. Daughter Magui asking for update when bed found [phone]
--- NOTE | 2024-01-14 16:43 | W.PN.ID1 ---
Date of Service
Date of Service: January 14, 2024
Today's Communication
follow up with PCP
Assessment / Plan
Fever -resolved
Sepsis - likely due to aspiration pneumonitis
Leukocytosis - improving
MARIA ESTHER vs CKD - improving
Pain pump and spinal stimulator
- completed adequate course of antibiotics - stopped
- follow up with PCP
Chief Complaint
-: Fever and Leukocytosis
Subjective / Review of Systems
afebrile
bp stable
without leukocytosis
cr stable
no new complaints
Vital Signs / Physical Exam
Vital Signs
Vital Signs
Temp Pulse Resp BP Pulse Ox
97.8 F 74 16 121/61 96
01/14/24 15:55 01/14/24 15:55 01/14/24 15:55 01/14/24 15:55 01/14/24 15:55
Physical Exam
Constitutional: No Acute Distress
Cardiovascular: Regular Rate and S1/S2; Negative Murmur or Rub
Pulmonary: Clear and Symmetric; Negative Wheezes or Rales
Gastrointestinal: Soft, Non Tender, Non Distended and Normal Bowel Sounds
Skin: Warm and Dry; Negative Rash or Jaundice
Objective Data
Lab Data
Lab Results
01/14/24 09:25
01/14/24 09:25
PT 13.2 Sec (11.4-14.6) 01/08/24 01:15
INR 1.00 01/08/24 01:15
Estimated Creat Clear 44 ml/min 01/14/24 09:25
Lactic Acid 1.5 mmol/L (0.7-2.0) 01/08/24 06:43
Total Bilirubin 0.6 mg/dl (0.2-1.3) 01/08/24 05:23
AST 61 U/L (17-59) H 01/08/24 05:23
ALT 45 U/L (0-50) 01/08/24 05:23
Alkaline Phosphatase 66 U/L (38-126) 01/08/24 05:23
Most recent labs reviewed.
Micro Results:
01/08/24 02:32 Blood Culture - Final
Blood/Venous No Growth - Final Report
01/08/24 02:32 Blood Culture - Final
Blood/Venous No Growth - Final Report
01/08/24 09:35 Respiratory Culture - Final
Sputum Usual Respiratory Sarah
Gram Stain - Final
01/08/24 19:38 Nasal Screen MRSA (PCR) - Final
Nose MRSA not detected - performed by PCR methodology.
01/08/24 01:15 Influenza Types A & B (FE) - Final
Nasal Swab Negative for Influenza A & B, NAAT
Negative results must be combined with clinical observations
and patient history.
Nucleic Acid Amplification test (NAAT)performed on the
[employer] platform.
[2024-01-14] MEDS: LIPITOR 80 MG PO (19:52)
[2024-01-14] MEDS: ASPIR LOW (ENTERIC COATED) 81 MG PO (19:53)
[2024-01-14] MEDS: PEPCID 20 MG PO (19:53)
[2024-01-15 03:00] VITALS: BP 121/55
[2024-01-15 05:46] VITALS: BMI 27.1
[2024-01-15] MEDS: SYNTHROID 50 MCG PO ×2 (06:05→06:06)
[2024-01-15] MEDS: DUONEB 3 ML INH (07:09)
[2024-01-15] MEDS: PULMICORT 0.5 MG INH (07:09)
[2024-01-15 08:00] VITALS: BP 122/53
[2024-01-15] MEDS: VIBRAMYCIN 100 MG PO (08:31)
[2024-01-15] MEDS: PROTONIX 40 MG PO (08:31)
[2024-01-15] MEDS: IMDUR (EXTENDED RELEASE) 30 MG PO (08:31)
[2024-01-15] MEDS: SENOKOT 17.1999999999999993 MG PO (08:32)
[2024-01-15] MEDS: DELTASONE 15 MG PO (08:32)
[2024-01-15] MEDS: TOPROL XL 25 MG PO (08:33)
[2024-01-15] MEDS: MUCINEX 600 MG PO (08:33)
[2024-01-15] MEDS: PLAVIX 75 MG PO (08:34)
[2024-01-15] MEDS: HEPARIN 5000 UNITS SC (08:34)
[2024-01-15] MEDS: TYLENOL 650 MG PO (10:18)
[2024-01-15 11:08] VITALS: BP 119/58; PULSE 74; O2SAT 98
--- NOTE | 2024-01-15 11:16 | W.PN.HOSP.TC ---
Today's Communication/Plan
-
d/c
Assessment / Plan
Assessment / Plan
Gen: remains NAD, Awake and alert
Eyes: EOMI, PERRLA, no scleral icterus.
Neck: supple.
CV: RRR, +S1/S2, no m/r/g.
Resp: CTAB anteriorly
Abd: +BS, soft, NT, ND
Skin: No rashes.
Neuro: CN 2-12 intact, non-focal.
Psych: Normal mood and affect.
01/08/24 02:32 Blood/Venous Blood Culture - Final
No Growth - Final Report
01/08/24 02:32 Blood/Venous Blood Culture - Final
No Growth - Final Report
01/08/24 09:35 Sputum Respiratory Culture - Final
Usual Respiratory Sarah
01/08/24 09:35 Sputum Gram Stain - Final
01/08/24 19:38 Nose Nasal Screen MRSA (PCR) - Final
MRSA not detected - performed by PCR methodology.
01/08/24 01:15 Nasal Swab Influenza Types A & B (FE) - Final
Negative for Influenza A & B, NAAT
Negative results must be combined with clinical observations
and patient history.
Nucleic Acid Amplification test (NAAT)performed on the
[employer] platform.
Echo 01/08/24: EF 55-60%, mod concentric LVH, no significant valvular disease.
CXR 01/08/24: There is new elevation of the right hemidiaphragm such as may be seen with paralysis of the right hemidiaphragm
CXR 01/09/24: No acute disease of the chest. Moderate elevation of the right hemidiaphragm. Stable.
CT chest: No significant abnormality identified in the chest within the limits of unenhanced CT
CT A/P:
1. Moderate distention of the proximal colon with air and contrast material suspicious for a mild colonic ileus.
2. 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
3. Mild chronic bilateral renal disease.
4. Severe calcific atherosclerotic plaque in the aorta.
5. Minimal peritoneal fluid in the pelvis.
6. Severe calcific atherosclerotic plaque in the coronary arteries.
7. Cholelithiasis.
8. Moderate elevation of the right hemidiaphragm.
9. 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 Previous laminectomies and bilateral posterior instrumentation/fusion at L4/L5. Spinal stimulator wire and spinal pain pump extending into the thoracic spinal canal.
Abd Xray 01/12/24: No evidence of intestinal obstruction. Mild residual oral contrast in the region of the rectum.
SIRS, POA, likely due to aspiration pneumonitis:
-with acute metabolic encephalopathy, POA, resolved
-note, sepsis has been ruled out as no definitive source of infection has been found. Sepsis-like picture was due to SIRS due to aspiration pneumonitis.
-leukocytosis now resolved
-U/A without evidence of infection
-CT chest unremarkable as above
-CT A/P without evidence of infection
-was on Doxy/Rocephin, then transitioned to cefdinir/Doxy and has completed antibiotic therapy as per ID
Acute hypoxic respiratory failure:
-CXR without infiltrate
-echo above, unremarkable
-COVID/flu NEG
-was on up to 5L NC O2, now weaned to RA
-appreciate pulm. Patient may have aspiration syndrome despite negative video swallow study.
-elevation of right hemidiaphragm noted
Mild hypotension:
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
-was on IV Hydrocortisone which was weaned to off on 01/12/24, now back on home PO Prednisone
CAD
-with elevated troponin which is nonischemic myocardial injury due to hypoxemia
-Echo: EF 55-60%, no RWMA
-h/o stenting of RCA 2015
-cardiology following
-cont BB/ASA/statin/Plavix
-likely outpt ischemic eval
Other problems:
Mild hyponatremia, resolved
MARIA ESTHER, resolved with IVFs
Thrombocytopenia resolved
Prolonged QTc: cardiology following
Chronic RBBB
Essential Hypertension: Cont BB/Imdur
Hyperlipidemia: continue statin
Chronic back pain: patient has a spinal stimulator and epidural analgesic pump (chronic opioid dependence)
Arthritis: on chronic prednisone
DJD/osteoporosis
Hypothyroidism: continue Synthroid
PUD: cont PPI
h/o Prostate CA s/p prostatectomy
Allergic Asthma
Chronic ambulatory dysfunction
FULL/heparin
Remains medically cleared for d/c. Case management aware.
Anticipated Discharge: Today
Subjective/Interval History
-
Date of Service: January 15, 2024
No new complaints.
Objective Data
-
Vital Signs:
Vital Signs
Temp Pulse Resp BP Pulse Ox
97.9 F 74 20 122/53 95
01/15/24 08:00 01/15/24 08:00 01/15/24 08:00 01/15/24 08:00 01/15/24 08:40
I&O
01/14/24 01/15/24 01/16/24
06:59 06:59 06:59
Intake Total 1760 / 1760 960 / 960
Output Total 660 / 660
Balance 1100 / 1100 960 / 960
--- NOTE | 2024-01-15 12:16 | CM ---
Addendum entered by Ashley Olivarez 01/15/24 16:15:
[facility]
Report: [phone]

Addendum entered by Ashley Olivarez 01/15/24 15:52:
CM received call from [facility], auth approved, start date of 01/14, reference number [id number], authorization plan #[id number], fax [facility] updated clinicals to [phone]. TT sent to Hospitalist and nurse. Message sent to [facility] in Admissions at [facility]
Divide with update. Phone call to patients daughter Magui, she will provide transportation.
Addendum entered by Ashley Olivarez 01/15/24 14:53:
CM called to check the status of auth, still pending. Will update [facility].
Original Note:
Patient seen bedside with daughter, Magui. CM updated [facility] accept patient, [facility] can accept patient. Patient choosing [facility]. Clinicals faxed to [facility] at [phone], pending reference number [id number]. CM can call
[phone] or [phone] for updates on auth. Eloina from [facility] asking for updates on auth status, hopeful to accept patient today if auth approved. CM will continue to follow for discharge planning needs.
Plan; [facility] SNF pending auth approval.
[2024-01-15 12:30] VITALS: BP 111/51
--- NOTE | 2024-01-15 15:10 | W.PN.ID1 ---
Date of Service
Date of Service: January 15, 2024
Today's Communication
follow up with pcp
Assessment / Plan
Fever -resolved
Sepsis - likely due to aspiration pneumonitis
Leukocytosis - improving
MARIA ESTHER vs CKD - improving
Pain pump and spinal stimulator
- completed adequate course of antibiotics
- follow up with PCP
Chief Complaint
-: Fever and Leukocytosis
Subjective / Review of Systems
afebrile
bp stable
hgb stable
no complaints
Vital Signs / Physical Exam
Vital Signs
Vital Signs
Temp Pulse Resp BP Pulse Ox
97.8 F 74 20 111/51 98
01/15/24 12:30 01/15/24 12:30 01/15/24 12:30 01/15/24 12:30 01/15/24 12:30
Physical Exam
Constitutional: No Acute Distress
Cardiovascular: Regular Rate and S1/S2; Negative Murmur or Rub
Pulmonary: Clear and Symmetric; Negative Wheezes or Rales
Gastrointestinal: Soft, Non Tender, Non Distended and Normal Bowel Sounds
Skin: Warm and Dry; Negative Rash or Jaundice
Objective Data
Lab Data
Lab Results
01/14/24 09:25
01/14/24 09:25
PT 13.2 Sec (11.4-14.6) 01/08/24 01:15
INR 1.00 01/08/24 01:15
Estimated Creat Clear 44 ml/min 01/14/24 09:25
Lactic Acid 1.5 mmol/L (0.7-2.0) 01/08/24 06:43
Total Bilirubin 0.6 mg/dl (0.2-1.3) 01/08/24 05:23
AST 61 U/L (17-59) H 01/08/24 05:23
ALT 45 U/L (0-50) 01/08/24 05:23
Alkaline Phosphatase 66 U/L (38-126) 01/08/24 05:23
Most recent labs reviewed.
Micro Results:
01/08/24 02:32 Blood Culture - Final
Blood/Venous No Growth - Final Report
01/08/24 02:32 Blood Culture - Final
Blood/Venous No Growth - Final Report
01/08/24 09:35 Respiratory Culture - Final
Sputum Usual Respiratory Sarah
Gram Stain - Final
01/08/24 19:38 Nasal Screen MRSA (PCR) - Final
Nose MRSA not detected - performed by PCR methodology.
01/08/24 01:15 Influenza Types A & B (FE) - Final
Nasal Swab Negative for Influenza A & B, NAAT
Negative results must be combined with clinical observations
and patient history.
Nucleic Acid Amplification test (NAAT)performed on the
[employer] platform.
--- NOTE | 2024-01-15 15:55 | W.DCSUMMARY ---
Discharge Summary
Discharge Data
Date of Admission: 01/08/24
Date of Discharge: 01/15/24
-
Pending Results: No
Hospital Course
Primary diagnoses:
Systemic inflammatory response syndrome, acute metabolic encephalopathy, and acute hypoxemic respiratory failure due to aspiration pneumonitis
Secondary diagnoses:
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
Coronary disease
Nonischemic myocardial injury due to hypoxemia
Mild hyponatremia
Acute kidney injury
Thrombocytopenia resolved
Prolonged QTc
Chronic right bundle branch block
Essential Hypertension:
Hyperlipidemia
Chronic back pain with spinal stimulator and epidural analgesic pump (chronic opioid dependence)
Arthritis
DJD/osteoporosis
Hypothyroidism
Peptic ulcer disease
h/o Prostate cancer s/p prostatectomy
Allergic Asthma
Chronic ambulatory dysfunction
Consultants:
Infectious disease
Cardiology
Pulmonary
Imaging:
Echo 01/08/24: EF 55-60%, mod concentric LVH, no significant valvular disease.
CXR 01/08/24: There is new elevation of the right hemidiaphragm such as may be seen with paralysis of the right hemidiaphragm
CXR 01/09/24: No acute disease of the chest. Moderate elevation of the right hemidiaphragm. Stable.
CT chest: No significant abnormality identified in the chest within the limits of unenhanced CT
CT A/P:
1. Moderate distention of the proximal colon with air and contrast material suspicious for a mild colonic ileus.
2. 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
3. Mild chronic bilateral renal disease.
4. Severe calcific atherosclerotic plaque in the aorta.
5. Minimal peritoneal fluid in the pelvis.
6. Severe calcific atherosclerotic plaque in the coronary arteries.
7. Cholelithiasis.
8. Moderate elevation of the right hemidiaphragm.
9. 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 Previous laminectomies and bilateral posterior instrumentation/fusion at L4/L5. Spinal stimulator wire and spinal pain pump extending into the thoracic spinal canal.
Abd Xray 01/12/24: No evidence of intestinal obstruction. Mild residual oral contrast in the region of the rectum.
88-year-old male who initially presented with shortness of breath and weakness as outlined in the H&P done on admission. Hospital course by problem list:
SIRS, POA, likely due to aspiration pneumonitis: Patient had acute metabolic encephalopathy on admission which resolved while hospitalized. He had a leukocytosis which resolved. All imaging above. Ultimately no source of infection was found. His
urinalysis was without evidence of infection. CT scan of the chest did not show pneumonia. CT scan of the abdomen pelvis did not show any evidence of infection. The patient was on doxycycline and Rocephin. He was then transition to cefdinir and
doxycycline and completed a course of antibiotic therapy. The patient's clinical presentation was likely due to aspiration pneumonitis (despite a negative video swallow evaluation).
Acute hypoxic respiratory failure: Patient's chest x-ray was without infiltrate. Echocardiogram above and unremarkable. COVID and flu testing were negative. Patient required up to up to 5L NC O2 and was weaned to room air. Patient was seen in
consultation by pulmonary. He likely had aspiration syndrome despite negative video swallow study. Elevation of the right hemidiaphragm was noted.
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 The patient was on IV hydrocortisone which was weaned to off on 01/12/24. He was transitioned back to his home PO Prednisone.
Discharge Plan
-
Patient Disposition: Senior Living/SNF
Discharge Diagnosis/Procedures: Systemic inflammatory response syndrome likely due to aspiration pneumonitis
Condition: Good
Diet: No restrictions
Activity: With assistance
Driving Restrictions: No driving
Blood Work: BMP/CBC in 1 week
Activity Restrictions/Additional Instructions:
Please see your PCP in < 1 week.
Referrals:
Meredith Nguyen PA-C [Specified Professional Personl] - 01/27/24 9:40 am (You have a cardiology follow-up appointment at the [place] office with Dr. Mercado's physician development assistant, Meredith. Please call with questions)
Tanner Leblanc MD [Active] - (3-4 weeks post dc)
Robert Humphrey MD [Family Provider] -
Prescriptions:
Continued
Prolia 60 MG/ML syringe
60 mg IV [id number]
nitroglycerin 0.4 MG tablet, sublingual
0.4 mg sublingual [id number] PRN (Reason: chest pain) Qty: 1 0RF
atorvastatin 80 MG tablet
80 mg PO HS Qty: 0 0RF
albuterol sulfate 2.5 MG/3 ML solution for nebulization
2.5 mg inhalation R Q4HPRN PRN (Reason: sob/wheezing) Qty: 0 0RF
clopidogrel 75 MG tablet
75 mg PO DAILY Qty: 30 5RF
aspirin 81 MG tablet,delayed release (DR/EC)
81 mg PO HS Qty: 0 0RF
famotidine 20 MG tablet
20 mg PO HS Qty: 0 0RF
hydrocodone-acetaminophen 5-325 mg Tablet
1 tab PO BID
isosorbide mononitrate 30 mg Tablet Extended Release 24 Hr
30 mg PO DAILY
acetaminophen 325 MG tablet
650 mg PO Q8HPRN PRN (Reason: mild pain/MELCHOR/temp> 101F)
prednisone 10 mg Tablet
15 mg PO DAILY
levothyroxine [Synthroid] 50 mcg Tablet
50 mcg PO DAILY@1600
guaifenesin [Mucinex] 600 mg Tablet Extended Release 12hr
600 mg PO HS
pantoprazole 40 MG tablet,delayed release (DR/EC)
40 mg PO DAILY
metoprolol succinate 25 MG tablet extended release 24 hr
25 mg PO DAILY
Myrbetriq 50 MG tablet extended release 24 hr
50 mg PO DAILY
PreserVision AREDS-2 1 EACH capsule
1 cap PO BID
hydromorphone-bupiv (PF)-NaCl
intrathecal UD
Rx Instructions:
11/24/23 [facility] DISPENSED HYDROMORPHONE 10MG/ML PLUS BUPIVACAINE 10MG/ML FOR TOTAL VOLUME 20ML FOR INTRATHECAL PAIN PUMP. SETTINGS DETERMINED BY PROVIDER
Discharge Orders:
Discharge Patient (As Directed); Ordered 01/15/24
Ordered By: Luis Martinez
Discharge Date and Time
Print Language: HUNGARIAN
== END 2024-01-15 18:15 | DRG 177 ==
LOC: 4 WEST ACU 04:51
PROVIDERS: Hospitalist; Physician Assistant; Physician Assistant Medical; ADMITTING PHYSICIAN Hospitalist; ATTENDING PHYSICIAN Internal Medicine; CONSULT PHYSICIAN Internal Medicine Cardiovascular Disease; CONSULT PHYSICIAN Student in an Organized Health Care Education/Training Program; EMERGENCY PHYSICIAN Emergency Medicine; FAMILY PHYSICIAN Internal Medicine Rheumatology
DX: J69.0 Pneumonitis due to inhalation of food and vomit (principal); G92.8 Other toxic encephalopathy; J96.01 Acute respiratory failure with hypoxia; R65.11 Systemic inflammatory response syndrome (SIRS) of non-infectious origin with acute organ dysfunction; E27.3 Drug-induced adrenocortical insufficiency; I5A Non-ischemic myocardial injury (non-traumatic); E87.1 Hypo-osmolality and hyponatremia; N17.9 Acute kidney failure, unspecified; F11.20 Opioid dependence, uncomplicated; T38.0X5A Adverse effect of glucocorticoids and synthetic analogues, initial encounter; I95.9 Hypotension, unspecified; D69.6 Thrombocytopenia, unspecified; I45.10 Unspecified right bundle-branch block; N18.9 Chronic kidney disease, unspecified; I12.9 Hypertensive chronic kidney disease with stage 1 through stage 4 chronic kidney disease, or unspecified chronic kidney disease; E03.9 Hypothyroidism, unspecified; G89.29 Other chronic pain
CPT/HCPCS: 71045; 71250; 74018; 74177; 74230; 76380; 80048; 80053; 80076; 80202; 81003; 81015; 82805; 83605; 83735; 83880; 84145; 84300; 84443; 84484; 85025; 85027; 85610; 87040; 87070; 87205; 87502; 87641; 87811; 92526; 92610; 92611; 93005; 93306; 93970; 94640; 96361; 96374; 96375; 97116; 97163; 97167; 97530; 97535; 99291; Q9967

== ENCOUNTER → 2024-01-22 12:31 | Outpatient (REF) | payer OTHER, SELFPAY ==
[2024-01-22 13:04] LABS: % Basophils 0.2 % (0-2); % Eosinophils 1.1 % (0-6); % Immature Granulocytes 0.7 % (0-0.5); % Lymphocytes 17.5 % (20.5-51.1); % Monocytes 11.2 % (1.7-9.3); % Neutrophils 69.3 % (42.2-75.2); Absolute Eosinophils 0.1 10^3/uL (0-0.7); Absolute Immature Granulocytes 0.1 10^3/uL (0-0.05); Absolute Lymphocytes 1.4 10^3/uL (1.2-3.4); Absolute Monocytes 0.9 10^3/uL (0.1-0.6); Absolute Neutrophils 5.7 10^3/uL (1.4-6.5); Hematocrit 27.4 % (39.0-52.0); Hemoglobin 8.8 g/dL (13.0-18.0); Mean Corp Hgb Conc. 32.1 g/dL (33.0-37.0); Mean Corpuscular Hgb 29.7 pg (27.0-31.0); Mean Corpuscular Volume 92.6 fL (80.0-94.0); Mean Platelet Volume 10.5 fL (7.4-10.4); Nucleated Red Blood Cells % 0 % (-); Platelet Count 275 10^3/uL (130-400); Red Blood Cell Count 2.96 10^6/uL (4.70-6.10); Red Cell Dist. Width 16.4 % (11.5-14.5); White Blood Cell Count 8.2 10^3/uL (4.8-10.8)
[2024-01-22 14:21] LABS: ALT (SGPT) 39 U/L (0-50); AST (SGOT) 33 U/L (17-59); Alkaline Phosphatase 66 U/L (38-126); Blood Urea Nitrogen 19 mg/dl (9-20); Calcium 8.1 mg/dl (8.4-10.2); Carbon Dioxide 24 mmol/L (22-30); Chloride 108 mmol/L (98-107); Glucose 108 mg/dl (70-99); Potassium 4.6 mmol/L (3.5-5.1); Sodium 135 mmol/L (135-145); Total Bilirubin 0.7 mg/dl (0.2-1.3); Total Protein 5.2 g/dl (6.3-8.2); eGFR > 60.00
[2024-01-22 14:37] LABS: TSH 2.42 uIU/ml (0.47-4.68)
== END ==
LOC: OLABN 12:31
PROVIDERS: ATTENDING PHYSICIAN Internal Medicine Rheumatology; FAMILY PHYSICIAN Student in an Organized Health Care Education/Training Program
DX: I10 Essential (primary) hypertension (principal)
CPT/HCPCS: 36415; 80053; 84443; 85025

== ENCOUNTER → 2024-01-23 08:50 | Outpatient (REF) | payer OTHER, SELFPAY ==
[2024-01-23 10:05] LABS: Reticulocyte Count 3.9 % (0.4-2.8)
[2024-01-23 10:21] LABS: Iron 54 ug/dl (49-181); LDH 383 U/L (120-246)
[2024-01-23 10:35] LABS: Percent Saturation 22 % (20-50); Total Iron Binding Capacity 242 ug/dl (261-462)
[2024-01-23 12:06] LABS: Folate 6.6 ng/ml (2.76-20); Vitamin B12 671 pg/ml (239-931)
== END ==
LOC: OLABN 08:50
PROVIDERS: ATTENDING PHYSICIAN Student in an Organized Health Care Education/Training Program
DX: D64.9 Anemia, unspecified (principal)
CPT/HCPCS: 36415; 82607; 82746; 83540; 83550; 83615; 85045

== ENCOUNTER → 2024-02-16 09:57 | Outpatient (REF) | payer OTHER, SELFPAY | LOC: RAD 09:57 | PROVIDERS: ATTENDING PHYSICIAN Family Medicine | DX: R13.10 Dysphagia, unspecified (principal) | CPT/HCPCS: 74221 ==

== ENCOUNTER → 2024-04-16 07:49 | Outpatient (REF) | payer OTHER, SELFPAY | LOC: RAD 07:49 | PROVIDERS: ATTENDING PHYSICIAN Internal Medicine Rheumatology; FAMILY PHYSICIAN Family Medicine | DX: M81.0 Age-related osteoporosis without current pathological fracture (principal) | CPT/HCPCS: 77080 ==

== ENCOUNTER → 2024-11-24 12:33 | Outpatient (REF) | payer OTHER, SELFPAY | LOC: RAD 12:33 | PROVIDERS: ATTENDING PHYSICIAN Physical Medicine & Rehabilitation Pain Medicine; FAMILY PHYSICIAN Family Medicine | DX: M25.512 Pain in left shoulder (principal); M75.102 Unspecified rotator cuff tear or rupture of left shoulder, not specified as traumatic | CPT/HCPCS: 73030 ==